=== PATIENT | male | born 1945 | race Caucasian/White ===

== ENCOUNTER → 2018-05-02 15:56 | Outpatient (CLI) | payer OTHER, MEDICARE, SELFPAY ==
--- NOTE | 2018-05-02 16:16 | XR_ITS ---
XR chest 2V HISTORY: ITS.REASON: SHORTNESS OF BREATH ORDERING PHYSICIAN: Santiago Zamudio MD PATIENT AGE: 72 years COMPARISON: 02/06/2013 FINDINGS: Cardiomegaly. Prior median sternotomy and CABG. There are small bilateral pleural effusions. No lobar consolidation or collapse. No CHF. No acute bony anomaly. IMPRESSION: Cardiomegaly with small bilateral pleural effusions.
[2018-05-02 16:29] LABS: Basophils % 0.6 % (0.1-2.0); Eosinophils # 0.2 K/mm3 (0.0-0.4); Eosinophils % 2.3 % (0.1-12.0); Hematocrit 43.2 % (42.0-52.0); Hemoglobin 13.6 g/dL (14.1-18.0); Lymphocytes # 2.3 K/mm3 (0.7-4.5); Lymphocytes % 32.1 % (10-50); Mean Corpuscular HGB Conc 31.5 g/dL (31.8-35.4); Mean Corpuscular Hemoglobin 30.4 pg (27.0-31.2); Mean Corpuscular Volume 96.7 fl (80-94); Mean Platelet Volume 7.9 fl (7.4-10.4); Monocytes # 0.5 K/mm3 (0.1-1.0); Monocytes % 7.3 % (1.7-9.3); Neutrophils # 4.2 K/mm3 (1.8-7.8); Neutrophils % 57.8 % (37.0-80.0); Platelet Count 134 K/mm3 (142-424); Red Blood Count 4.47 M/mm3 (4.60-6.20); Red Cell Distribution Width 14.7 % (11.5-17.5); White Blood Count 7.2 K/mm3 (4.8-10.8)
[2018-05-02 18:01] LABS: Anion Gap 13.5 mEq/L (5-15); Blood Urea Nitrogen 22 mg/dL (7-18); Calcium 8.8 mg/dL (8.5-10.1); Carbon Dioxide 28 mmol/L (21.0-32.0); Chloride 109 mmol/L (98-107); Creatinine,Serum 0.83 mg/dL (0.70-1.30); Estimated Glomerular Filt Rate 91 ml/min (>60); GFR (African American) 110 ML/MIN (>60); Glucose 73 mg/dL (74-106); Potassium 4.5 mmoL/L (3.5-5.1); Sodium 146 mmol/L (136-145)
== END ==
PROVIDERS: Visit Provider Family Medicine
DX: R06.02 Shortness of breath (principal); I25.10 Atherosclerotic heart disease of native coronary artery without angina pectoris
CPT/HCPCS: 36415; 71046; 80048; 83880; 85025

== ENCOUNTER → 2018-05-11 07:46 | Outpatient (CLI) | payer OTHER, MEDICARE, SELFPAY ==
--- NOTE | 2018-05-11 07:59 | CA_ITS ---
PROCEDURE: INDICATIONS FOR THE TEST: Chest pain COPD Heart Murmur Tobacco Smoking Palpitations Fatigue Syncope Edema Hypertension+Diabetes Mellitus Rheumatic Fever SOB+MCKEON Obesity Hyperlipidemia+ Family History HD Additional History CABG X 5, STENTS, CAROTID STENT, H/O CHF PATIENT INFORMATION HEIGHT: 71 WEIGHT:214 GENDER: Male B/P:127/72 2-D/M-MODE INTERPRETATION: 2-D MEASUREMENTS OBSERVED VALUES IN CMS Right Ventricular Dimension (RVDd) 2.3 Interventricular Septum (Thickness)(IVsd) 1.1 Left Ventricular Internal Dimensions(LVIDd) 8.3 Left Ventricular Posterior Wall (Thickness)(LVPWd) 0.6 Aortic Root 3.5 Aortic Cusp Separation 1.4 Left Atrial Dimensions (LAD) 5.7 2D 1. Left atrium is moderately enlarged, left ventricle is moderately dilated, there is mild concentric left ventricular hypertrophy, visually estimated ejection fraction 30%, there is marked hypo to akinesis involving the inferior, basal septum, inferobasal, posterobasal and inferolateral wall. 2. The right atrium and right ventricle are normal size and contractility. 3. The aortic valve is thickened and calcified leaflet continue to display mobility. 4. The mitral and tricuspid valve leaflets are minimally thickened. 5. The pulmonic valve is poorly present. 6. No significant pericardial effusion noted. DOPPLER INTERROGATION: Doppler interrogation of the aortic, mitral and tricuspid valvular presence of moderate aortic, mild mitral and tricuspid regurgitation, tricuspid regurgitation jet velocity is inadequate for calculation of the right ventricular systolic pressure, diastolic parameters are inconclusive. CONCLUSION: 1. Moderately enlarged left atrium, moderately dilated left ventricle, mild concentric left ventricular hypertrophy, visually estimated ejection fraction 30% with multiple segmental wall motion abnormality described above, diastolic parameters are inconclusive. 2. Moderate aortic, mild mitral and tricuspid regurgitation 3. No significant pericardial effusion noted.
== END ==
PROVIDERS: PCP Family Medicine; Visit Provider Family Medicine
DX: R06.02 Shortness of breath (principal); I25.10 Atherosclerotic heart disease of native coronary artery without angina pectoris
CPT/HCPCS: 93306

== ENCOUNTER → 2018-12-08 13:43 | Outpatient (CLI) | payer OTHER, SELFPAY | PROVIDERS: PCP Family Medicine; Visit Provider Family Medicine | DX: R06.00 Dyspnea, unspecified (principal); Z87.891 Personal history of nicotine dependence | CPT/HCPCS: 94060 ==

== ENCOUNTER → 2019-12-20 10:22 | Outpatient (CLI) | payer MEDICARE, SELFPAY ==
--- NOTE | 2019-12-20 10:30 | US_ITS ---
APPROVED REPORT Exam Type: Ankle to Brachial Index Chief Of Anesthesiology: RT Philip(R) Indications Claudication: Bilaterally Rest Pain: Bilaterally History of Smoking CAD Risk Factors CAD Cardiac Disease Diabetes Pressures/Indices Right Indices Left Indices Brachial 160.00 mmHg Brachial 160.00 mmHg Low Thigh 153.00 mmHg 0.96 Low Thigh 150.00 mmHg 0.94 Calf 149.00 mmHg 0.93 Calf 133.00 mmHg 0.83 Ankle(PT) 109.00 mmHg 0.68 Ankle(PT) 175.00 mmHg 1.09 Ankle(DP) 180.00 mmHg 1.13 Ankle(DP) 158.00 mmHg 0.99 Digit 88.00 mmHg 0.55 Digit 108.00 mmHg 0.68 Findings RT SIL=1.1 LT SIL=1.1 RT TBI=0.6 LT TBI=0.7 Diminished pulses RLE Normal waveforms Conclusion Normal appearing resting noninvasive lower extremity arterial study. Electronically signed by : Dhruv Clarke MD 12/20/2019 16:30:12
== END ==
PROVIDERS: PCP Family Medicine; Visit Provider Family Medicine
DX: I70.213 Atherosclerosis of native arteries of extremities with intermittent claudication, bilateral legs (principal)
CPT/HCPCS: 93923

== ENCOUNTER → 2020-03-08 09:34 | Outpatient (CLI) | payer MEDICARE, SELFPAY | PROVIDERS: PCP Family Medicine; Visit Provider Family Medicine | DX: Z20.828 Contact with and (suspected) exposure to other viral communicable diseases (principal); U07.1 COVID-19 | CPT/HCPCS: U0003 ==

== ENCOUNTER → 2020-12-24 13:11 | Outpatient (CLI) | payer MEDICARE, SELFPAY | PROVIDERS: Visit Provider Surgery | DX: Z01.812 Encounter for preprocedural laboratory examination (principal); Z20.822 Contact with and (suspected) exposure to COVID-19; Z12.11 Encounter for screening for malignant neoplasm of colon | CPT/HCPCS: U0003 ==

== ENCOUNTER 2020-12-25 09:04 | Day surgery (SDC) | payer MEDICARE, SELFPAY ==
[2020-12-18 12:08] VITALS: BMI 18.3
[2020-12-25 09:26] VITALS: BP 157/75; PULSE 83; RESP 16; TEMP 36.2; O2SAT 97
[2020-12-25 09:36] LABS: POC Glucose,Bedside 146 (70-110)
[2020-12-25 09:42] VITALS: O2SAT 97
--- NOTE | 2020-12-25 09:45 | HMH.ANESCL ---
[facility] Anesthesia Checklist - Patient Identification Patient Identification: Arm Band - Structural Data Admitted From: Home Planned Operative Procedure/s: colonoscopy Consent for Planned Operative Procedure(s) Verified: Yes Verified Documents: Surgical Consent, History and Physical - NPO Status Verified Time NPO: 00:00 - Additional verifications Anesthesia Reactions: No - Airway Assessment C-Spine Mobility Assessed: Yes (mp2) TMJ Mobility Assessed: Yes Dentition: Edentulous - Neurological Assessment Level of Consciousness: Awake, Alert - Anesthesia Plan Anesthesia Risk discussed: Yes Anesthesia Plan: Verified ASA Class: III Anesthesia Type: MAC [facility] History I have reviewed the patient's past medical history: Yes Medical History: Reports:: Cancer (colon), Carotid Stenosis, Coronary Artery Disease, Diabetes Mellitus Type 2, Hyperlipidemia, Hypertension Denies:: Diabetes Mellitus Type 1, Internal Pacemaker, Lung Disease, MRSA, Seizures *Have you ever received a pneumonia vaccine?: No *Have you received a flu vaccine this season?: No Anesthesia experience/problems:: nac Laterality Cases: Bilateral: Cataract, Tonsillectomy Other Surgeries: Yes: Appendectomy, Cancer Surgery, Cardiac Catheterization, Colonoscopy, Colon Resection, Coronary Stent, Hernia Repair, Open Heart Surgery (CABGx4), Other. No: Pacemaker Amputation: No Fractures: No - *Social History Last grade of school completed: Some college Smoking Status: Former smoker #Yrs smoked (if former smoker): 30 Smoking End Date: 1989 Alcohol Intake: former Substance Use Type: denies use *Occupational Status:: retired Housing: house Household Members: spouse, family *Travel in the last 8 weeks: None Family Hx:: Cancer, Diabetes, Heart Attack, Hyperlipidemia, Hypertension
--- NOTE | 2020-12-25 09:57 | HMH.SCOPE ---
- Procedure: Date: 12/25/20 Patient Date of :: 1945 Procedure Performed:: Colonoscopy Indications:: Patient is a 75-year-old male who is somewhat of a poor historian who presents for follow-up colonoscopy. He has a history of coronary artery disease with previous stenting, carotid stents, diabetes on insulin, on Plavix. He states that he is past due for colonoscopy. He had previously been under the care of Dr. 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 He did have postoperative chemoradiation. Colonoscopy 02/22/2014 and 03/28/[address] Johnston was unremarkable for any recurrence or adenomatous polyps. I had seen the patient in November 2016 and scheduled him for colonoscopy but he never went through with this. He ultimately was scheduled for colonoscopy which was done on 03/29/2018. The patient had failed to stop his Plavix at that time. However, colonoscopy was performed. He was found to have somewhat of an atonic colon and cannulation of the cecum was rather difficult. He had a moderate adenomatous polyp adjacent to the appendiceal orifice which was removed with hot snare and returned as sessile serrated adenoma. He also has some nodular mucosa the rectosigmoid region which returned as melanosis coli. He does have some diarrhea which he feels may be due to the Metformin. Otherwise no symptomatology. Performing Provider:: Jake Herrmann MD Referring Provider:: None Sedation:: MAC sedation Procedure:: Patient was taken to endoscopy procedure room. He was positioned in lateral decubitus position. Adequate intravenous sedation was achieved with anesthesia titration of propofol. Digital examination was performed which was unremarkable. Variable stiffness Olympus colonoscope was inserted via the anus. It was immediately noted to be particulate stool within the rectum. Colonoscope was advanced. In the left colon there was particulate liquid stool. Transverse colon revealed poor preparation as well. Upon reaching the right colon there was solid formed stool throughout the colon. There was also undigested vegetable matter. This could not be irrigated. Visualization was very poor. Colonoscope was withdrawn. Findings:: Very poor visualization Recommendations:: Repeat colonoscopy within several months with aggressive bowel preparation and actual low residue diet Complications:: None immediately apparent Estimated blood obtained (mL): 0
[2020-12-25 09:58] VITALS: BP 127/63; PULSE 68; RESP 16; TEMP 36.6; O2SAT 95
[2020-12-25 10:08] VITALS: BP 156/66; PULSE 82; RESP 16; TEMP 36.6; O2SAT 96
[2020-12-25 10:18] VITALS: BP 136/74; PULSE 58; RESP 16; TEMP 36.6; O2SAT 96
[2020-12-25 10:28] VITALS: BP 144/84; PULSE 65; RESP 18; TEMP 36.6; O2SAT 96
== END 2020-12-25 10:28 | disposition home or self-care (01) ==
PROVIDERS: PCP Family Medicine; Visit Provider Surgery
PROC: 0DJD8ZZ Inspection of Lower Intestinal Tract, Via Natural or Artificial Opening Endoscopic (ICD-10-PCS; principal; 2020-12-25 10:30)
DX: Z12.11 Encounter for screening for malignant neoplasm of colon (principal); Z85.038 Personal history of other malignant neoplasm of large intestine; I25.10 Atherosclerotic heart disease of native coronary artery without angina pectoris; Z95.818 Presence of other cardiac implants and grafts; E11.9 Type 2 diabetes mellitus without complications; Z79.01 Long term (current) use of anticoagulants; Z79.82 Long term (current) use of aspirin; Z79.4 Long term (current) use of insulin; Z79.899 Other long term (current) drug therapy; I50.9 Heart failure, unspecified
CPT/HCPCS: G0105; 82962

== ENCOUNTER → 2021-04-21 11:22 | Outpatient (CLI) | payer MEDICARE, SELFPAY | PROVIDERS: Visit Provider Surgery | DX: Z01.812 Encounter for preprocedural laboratory examination (principal); Z11.52 Encounter for screening for COVID-19; Z12.11 Encounter for screening for malignant neoplasm of colon | CPT/HCPCS: C9803; U0003; U0005 ==

== ENCOUNTER 2021-04-23 06:20 | Day surgery (SDC) | payer MEDICARE, SELFPAY ==
[2021-04-18 10:02] VITALS: BMI 31.0
[2021-04-23] VITALS (7 sets, daily range): BP systolic 110–153; BP diastolic 57–78; PULSE 61–80; RESP 17–18; TEMP 36.1–36.6; O2SAT 93–98
--- NOTE | 2021-04-23 07:02 | HMH.GSHP ---
HPI HPI: Patient presents for follow-up colonoscopy. Patient is a 75-year-old male who is somewhat of a poor historian. He has a history of coronary artery disease with previous stenting, carotid stents, diabetes on insulin, on Plavix. He had previously been under the care of Dr. 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 He did have postoperative chemoradiation. Colonoscopy 02/22/2014 and 03/28/[address] Johnston was unremarkable. I had seen the patient in November 2016 and scheduled him for colonoscopy but he never went through with this. He ultimately did undergo colonoscopy on 03/29/2018. The patient had failed to stop his Plavix at that time. However, colonoscopy was performed. He was found to have somewhat of an atonic colon and cannulation of the cecum was rather difficult. He had a moderate adenomatous polyp adjacent to the appendiceal orifice which was removed with hot snare and returned as sessile serrated adenoma. He also has some nodular mucosa the rectosigmoid region which returned as melanosis coli. Given his history of colon cancer and sessile serrated adenoma he was scheduled for colonoscopy which was performed on 12/25/2020. Colonic preparation was extremely poor and visualization was very poor. Plan was for follow-up colonoscopy in several months with more aggressive bowel preparation and low residue diet. [facility] History I have reviewed the patient's past medical history: Yes Medical History: Reports:: Cancer, Carotid Stenosis, Coronary Artery Disease, Diabetes Mellitus Type 2, Hyperlipidemia, Hypertension Denies:: Diabetes Mellitus Type 1, Internal Pacemaker, Lung Disease, MRSA, Seizures *Have you ever received a pneumonia vaccine?: No *Have you received a flu vaccine this season?: Yes Laterality Cases: Right: Other, Bilateral: Cataract, Tonsillectomy Other Surgeries: Yes: Appendectomy, Cancer Surgery, Cardiac Catheterization, Colonoscopy, Colon Resection, Coronary Stent, Hernia Repair, Open Heart Surgery (CABGx4), Other. No: Pacemaker Amputation: No Fractures: No - *Social History Last grade of school completed: Some college Smoking Status: Former smoker Tobacco Type: cigarettes #Yrs smoked (if former smoker): 30 Alcohol Intake: former Substance Use Type: denies use *Occupational Status:: retired Housing: house Household Members: spouse, family *Travel in the last 8 weeks: None Family Hx:: Cancer, Diabetes, Heart Attack, Hyperlipidemia, Hypertension Review of Systems - Review of Systems Review of systems:: pertinent systems reviewed and negative unless documented below Meds Home Medications Medication Instructions Recorded Confirmed Type aspirin 81 mg tablet,delayed 81 mg PO DAILY 03/07/18 04/23/21 History release clopidogrel 75 mg tablet 75 mg PO DAILY 03/07/18 04/23/21 History insulin glargine 100 unit/mL 20 unit SQ DAILY 03/07/18 04/23/21 History subcutaneous solution krill oil 500 mg capsule 1 tab PO BID cap 03/07/18 04/23/21 History metformin 500 mg tablet 500 mg PO BID 03/07/18 04/23/21 History metoprolol succinate 25 mg 25 mg PO DAILY 03/07/18 04/23/21 History tablet,extended release 24 hr niacin 500 mg capsule,extended 500 mg PO QHS 03/07/18 04/23/21 History release pravastatin 10 mg tablet 10 mg PO DAILY 03/07/18 04/23/21 History apple cider vinegar 600 mg capsule 600 mg PO DAILY 12/06/20 04/23/21 History ascorbic acid (vitamin C) 500 mg 500 mg PO DAILY 12/06/20 04/23/21 History capsule cholecalciferol (vitamin D3) 10 10 mcg PO DAILY 12/06/20 04/23/21 History mcg (400 unit) capsule cinnamon bark 500 mg capsule 500 mg PO DAILY 12/06/20 04/23/21 History enalapril maleate 5 mg tablet 5 mg PO DAILY tab 12/06/20 04/23/21 History furosemide 40 mg tablet 40 mg PO BID tab 12/06/20 04/23/21 History gabapentin 600 mg tablet 800 mg PO TID tab 12/06/20 04/23/21 History multivit with min-folic 1 tab
--- NOTE | 2021-04-23 08:06 | P.PCN_ITS ---
- Procedure: Date: 04/23/21 Patient Date of :: 1945 Procedure Performed:: Colonoscopy with biopsies Indications:: Patient presents for follow-up colonoscopy. Patient is a 75-year-old male who is somewhat of a poor historian. He has a history of coronary artery disease with previous stenting, carotid stents, diabetes on insulin, on Plavix. He had previously been under the care of Dr. 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 He did have postoperative chemoradiation. Colonoscopy 02/22/2014 and 03/28/[address] Johnston was unremarkable. I had seen the patient in November 2016 and scheduled him for colonoscopy but he never went through with this. He ultimately did undergo colonoscopy on 03/29/2018. The patient had failed to stop his Plavix at that time. However, colonoscopy was performed. He was found to have somewhat of an atonic colon and cannulation of the cecum was rather difficult. He had a moderate adenomatous polyp adjacent to the appendic eal orifice which was removed with hot snare and returned as sessile serrated adenoma. He also has some nodular mucosa the rectosigmoid region which returned as melanosis coli. Given his history of colon cancer and sessile serrated adenoma he was scheduled for colonoscopy which was performed on 12/25/2020. Colonic preparation was extremely poor and visualization was very poor. Plan was for follow-up colonoscopy in several months with more aggressive bowel preparation and low residue diet. Performing Provider:: Jake Herrmann MD Referring Provider:: Santiago Zamudio MD Sedation:: MAC sedation Procedure:: Patient was taken to endoscopy procedure room. He was positioned in lateral de cubitus position. Adequate intravenous sedation was achieved with anesthesia titration of propofol. Variable stiffness Olympus colonoscope was inserted via the anus. It was advanced to the cecum. He did have some floppiness of the sigmoid colon. Ileocecal valve and appendiceal orifice were identified. Colonic preparation was fair but adequate visualization was achieved with thorough irrigation and suctioning. There was a focal area of reddish mucosa in the cecum which was biopsied. Colonoscope was slowly withdrawn through the colon with careful surveillance thorough irrigation and suctioning. There were some sigmoid diverticuli. What appeared to be likely end-to-end anastomosis was encountered at approximately 20 cm from the anal verge. In the rectosigmoid region there is some minor nodular appearing mucosa which was biopsied. Retroflexion within the rectum revealed no evidence of any pathologic internal hemorrhoids. Colonoscope was withdrawn. Findings:: Fair colonic preparation Focal spot of likely colitis in the cecum, biopsied Sigmoid diverticuli Anastomosis approximately 20 cm from the anal verge Minor nodular appearing mucosa of the rectosigmoid, likely inconsequential, biopsied Recommendations:: Likely repeat colonoscopy in 2 years given prior history and fair colonic preparation Complications:: None immediately apparent Estimated blood obtained (mL): 2
--- NOTE | 2021-04-23 12:16 | HMH.ANESCL ---
[facility] Anesthesia Checklist - Patient Identification Patient Identification: Arm Band, Verbal (Name & ) - Structural Data Admitted From: Home Planned Operative Procedure/s: Colonoscopy Consent for Planned Operative Procedure(s) Verified: Yes Verified Documents: Surgical Consent - NPO Status Verified Time NPO: 00:00 - Additional verifications Anesthesia Reactions: No - Cardiovascular Assessment Heart Sounds: S1 & S2 - Airway Assessment C-Spine Mobility Assessed: Yes TMJ Mobility Assessed: Yes Dentition: Edentulous - Neurological Assessment Level of Consciousness: Awake, Alert, Appropriate - Anesthesia Plan Anesthesia Risk discussed: Yes ASA Class: II Anesthesia Type: General [facility] History I have reviewed the patient's past medical history: Yes Medical History: Reports:: Cancer, Carotid Stenosis, Coronary Artery Disease, Diabetes Mellitus Type 2, Hyperlipidemia, Hypertension Denies:: Diabetes Mellitus Type 1, Internal Pacemaker, Lung Disease, MRSA, Seizures *Have you ever received a pneumonia vaccine?: No *Have you received a flu vaccine this season?: Yes Anesthesia experience/problems:: none Laterality Cases: Right: Other, Bilateral: Cataract, Tonsillectomy Other Surgeries: Yes: Appendectomy, Cancer Surgery, Cardiac Catheterization, Colonoscopy, Colon Resection, Coronary Stent, Hernia Repair, Open Heart Surgery (CABGx4), Other. No: Pacemaker Amputation: No Fractures: No - *Social History Last grade of school completed: Some college Smoking Status: Former smoker Tobacco Type: cigarettes #Yrs smoked (if former smoker): 30 Alcohol Intake: former Substance Use Type: denies use *Occupational Status:: retired Housing: house Household Members: spouse, family *Travel in the last 8 weeks: None Family Hx:: Cancer, Diabetes, Heart Attack, Hyperlipidemia, Hypertension
--- NOTE | 2021-04-23 12:50 | HMH.ANESI ---
[facility] Anesthesia Record Part I Intake, IV Amount: 600 Estimated blood loss (mL): 1 Urine output (mL): 0 Blood Pressure: 110/57 SaO2: 93 Pulse Rate: 71 Respiratory Rate: 17 Temperature: 97.0 F Patient is:: Drowsy Stable to PACU at:: 12:47
[2022-02-26 10:54] LABS: POC Glucose,Bedside 110 (70-110)
== END 2021-04-23 08:38 | disposition home or self-care (01) ==
LOC: OUTP 06:21
PROVIDERS: PCP Family Medicine; Visit Provider Surgery
PROC: 0DJD8ZZ Inspection of Lower Intestinal Tract, Via Natural or Artificial Opening Endoscopic (ICD-10-PCS; principal; 2021-04-23 07:30)
DX: Z12.11 Encounter for screening for malignant neoplasm of colon (principal); K63.89 Other specified diseases of intestine; Z90.49 Acquired absence of other specified parts of digestive tract; Z85.030 Personal history of malignant carcinoid tumor of large intestine; I65.29 Occlusion and stenosis of unspecified carotid artery; E11.9 Type 2 diabetes mellitus without complications; E78.5 Hyperlipidemia, unspecified; I10 Essential (primary) hypertension; Z87.891 Personal history of nicotine dependence; Z80.9 Family history of malignant neoplasm, unspecified; Z83.3 Family history of diabetes mellitus; Z82.3 Family history of stroke; Z83.438 Family history of other disorder of lipoprotein metabolism and other lipidemia; Z82.49 Family history of ischemic heart disease and other diseases of the circulatory system
CPT/HCPCS: 45380; 82962; 88305

== ENCOUNTER → 2022-04-14 09:35 | Outpatient (CLI) | payer MEDICARE, SELFPAY ==
--- NOTE | 2022-04-14 09:41 | CT_ITS ---
FINAL REPORT TECHNIQUE: Pre and postcontrast images of the abdomen and pelvis was obtained by computed tomography. This study was performed with techniques to keep radiation doses as low as reasonably achievable (ALARA). Individualized dose reduction techniques using automated exposure control or adjustment of mA and/or kV according to the patient's size were employed. CLINICAL HISTORY: left side pain FINDINGS: The lung bases are clear. The liver parenchyma is homogeneous. There are small stones or sludge in the dependent portion of the gallbladder. The spleen is unremarkable. The adrenals are normal. The pancreas is unremarkable. There is extensive vascular calcification of the abdominal aorta, iliac vessels, and mesenteric vessels. There are benign-appearing cysts in both kidneys measuring up to 7.6 x 6.9 cm on the right and 8.7 x 7.5 cm on the left. There is a partially calcified rim to the cyst in the lower pole of the left kidney, may represent decompressed remanent of a partially calcified cyst. Precontrast images demonstrate no nephrolithiasis. The appendix is not identified. There are postoperative changes in the rectosigmoid junction. The urinary bladder is unremarkable. There is no free fluid or adenopathy. There are healed fracture deformities at the symphysis pubis bilaterally. There is also a healed fracture of the left sacral ala. IMPRESSION: Stones or sludge in the gallbladder. Bilateral renal cysts as detailed above. No acute inflammatory process. Reviewed, Interpreted and Dictated by Dimas Riggs MD Transcribed by Irene Marx Authenticated and [facility]
== END ==
PROVIDERS: PCP Family Medicine; Visit Provider Surgery
DX: R10.9 Unspecified abdominal pain (principal)
CPT/HCPCS: 74178; Q9967

== ENCOUNTER 2022-06-12 10:30 | Day surgery (SDC) | payer MEDICARE, SELFPAY ==
[2022-06-12] VITALS (8 sets, daily range): BP systolic 110–145; BP diastolic 67–83; PULSE 66–76; RESP 18; TEMP 36.4–36.6; O2SAT 95–99; BMI 28.5
--- NOTE | 2022-06-12 10:43 | P.PN_ITS ---
[facility] Disclaimer: The information contained in this section may have been updated after the patient was seen, as this information can be updated by other users. Medical History (Updated 06/12/22 @ 10:55 by Yun Garcia RN) Colon cancer Diabetes mellitus, type 2 Hyperlipidemia Hypertension Internal carotid artery stent present Seizure disorder Surgical History (Updated 06/12/22 @ 10:52 by Yun Garcia RN) H/O heart artery stent History of appendectomy History of colon resection History of colonoscopy Family History Other Family history of arthritis Family history of myocardial infarction Social History (Updated 06/12/22 @ 10:55 by Yun Garcia RN) Smoking Status: Former smoker pack-years: 30 second hand exposure: No alcohol intake: former substance use type: denies use current occupational status: retired Travel in the last 8 weeks: None household members: spouse and family housing: house caffeine: No [facility] Anesthesia Checklist Patient Identification Patient Identification: Arm Band and Verbal (Name & ) Structural Data Admitted From: Home Planned Operative Procedure/s: E/C Consent for Planned Operative Procedure(s) Verified: Yes NPO Status Verified Time NPO: 00:00 Additional verifications Anesthesia Reactions: No Airway Assessment C-Spine Mobility Assessed: Yes TMJ Mobility Assessed: Yes Dentition: Edentulous Neurological Assessment Level of Consciousness: Awake Hx Seizures: No Numbness or tingling in extremities: No Anesthesia Plan Anesthesia Risk discussed: Yes Anesthesia Plan: Verified ASA Class: III Anesthesia Type: MAC
[2022-06-12 11:05] LABS: POC Glucose,Bedside 138 (70-110)
--- NOTE | 2022-06-12 12:10 | EXP.GEN.HP ---
HPI HPI HPI: Patient presents for EGD and colonoscopy.? He is somewhat of a poor historian.? He is a 76-year-old male who is an established patient of mine.? He has a history of coronary disease with previous coronary stenting, history of carotid stents, diabetes on insulin, on Plavix.? He underwent low anterior resection by Dr. 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 Dr. Johnston had performed colonoscopy on 02/22/2014 and on 03/28/2015 which were reportedly unremarkable.? I did colonoscopy on 03/29/2018 and patient had moderate sized adenomatous polyp adjacent to the appendiceal orifice which returned as sessile serrated adenoma and had some rectosigmoid melanosis coli.? I had performed colonoscopy on 12/25/2020 and colonic preparation was extremely poor with very poor visualization.? Follow-up colonoscopy was performed on 04/19/2001 at which time he had poor to fair colonic preparation with sigmoid diverticuli.? Apparently recently the patient has had some melena characterized as jet black stool.? Patient also had been complaining of right posterior flank pain and back pain for couple days.? I had him undergo CT scan which reveals stones or sludge in the gallbladder.? Bilateral renal cysts as detailed above.? No acute inflammatory process. [facility] Disclaimer: The information contained in this section may have been updated after the patient was seen, as this information can be updated by other users. Medical History (Updated 06/12/22 @ 10:55 by Yun Garcia RN) Colon cancer Diabetes mellitus, type 2 Hyperlipidemia Hypertension Internal carotid artery stent present Seizure disorder Surgical History (Updated 06/12/22 @ 10:52 by Yun Garcia RN) H/O heart artery stent History of appendectomy History of colon resection History of colonoscopy Family History Family history of arthritis Family history of myocardial infarction Social History (Updated 06/12/22 @ 10:55 by Yun Garcia RN) Smoking Status: Former smoker pack-years: 30 second hand exposure: No alcohol intake: former substance use type: denies use current occupational status: retired Travel in the last 8 weeks: None household members: spouse and family housing: house caffeine: No Meds Home Medications and Allergies Home Medications Medication Instructions Recorded Confirmed Type aspirin 81 mg tablet,delayed 81 mg PO DAILY Heart disease 03/07/18 06/12/22 History release (Adult Low Dose Aspirin) clopidogrel 75 mg tablet 75 mg PO DAILY bypass 03/07/18 06/12/22 History insulin glargine 100 unit/mL 20 unit SQ DAILY Diabetes 03/07/18 06/12/22 History subcutaneous solution (Lantus U-100 Insulin) krill oil 500 mg capsule 1 tab PO BID Supplement 03/07/18 06/12/22 History metformin 500 mg tablet 500 mg PO BID Diabetes 03/07/18 06/12/22 History metoprolol succinate 25 mg 25 mg PO DAILY blood pressure 03/07/18 06/12/22 History tablet,extended release 24 hr niacin 500 mg capsule,extended 500 mg PO QHS Supplement 03/07/18 06/12/22 History release pravastatin 10 mg tablet 10 mg PO DAILY Cholesterol 03/07/18 06/12/22 History apple cider vinegar 600 mg capsule 600 mg PO DAILY Supplement 12/06/20 06/12/22 History ascorbic acid (vitamin C) 500 mg 500 mg PO DAILY Supplement 12/06/20 06/12/22 History capsule cholecalciferol (vitamin D3) 10 10 mcg PO DAILY Supplement 12/06/20 06/12/22 History mcg (400 unit) capsule cinnamon bark 500 mg capsule 500 mg PO DAILY Supplement 12/06/20 06/12/22 History (Cinnamon) enalapril maleate 5 mg tablet 5 mg PO DAILY bp 12/06/20 06/12/22 History furosemide 40 mg tablet 40 mg PO BID Fluid 12/06/20 06/12/22 History gabapentin 600 mg tablet 800 mg PO TID nerve pain 12/06/20 06/12/22 History multivit with min-folic 1 tab PO DAILY Supplement 12/06/20 06/12/22 Hist
--- NOTE | 2022-06-12 12:44 | HMH.SCOPE ---
Procedure: Date: 06/12/22 Patient Date of :: 1945 Procedure Performed:: Esophagogastroduodenoscopy Colonoscopy Indications:: Patient presents for EGD and colonoscopy.? He is somewhat of a poor historian.? He is a 76-year-old male who is an established patient of mine.? He has a history of coronary disease with previous coronary stenting, history of carotid stents, diabetes on insulin, on Plavix.? He underwent low anterior resection by Dr. 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 Dr. Johnston had performed colonoscopy on 02/22/2014 and on 03/28/2015 which were reportedly unremarkable.? I did colonoscopy on 03/29/2018 and patient had moderate sized adenomatous polyp adjacent to the appendiceal orifice which returned as sessile serrated adenoma and had some rectosigmoid melanosis coli.? At that time the patient had failed to stop his Plavix prior to the procedure. I had performed colonoscopy on 12/25/2020 and colonic preparation was extremely poor with very poor visualization.? Follow-up colonoscopy was performed on 04/19/2001 at which time he had poor to fair colonic preparation with sigmoid diverticuli.? Plan was made for follow-up colonoscopy in 2 years. Apparently recently the patient has had some melena characterized as jet black stool.? Patient also had been complaining of right posterior flank pain and back pain for couple days.? I had him undergo CT scan which reveals stones or sludge in the gallbladder.? Bilateral renal cysts as detailed above.? No acute inflammatory process. Plan was made to proceed with EGD and colonoscopy. Patient states that his colonic preparation went well and he was passing essentially water. He had not discontinued his aspirin and only held his Plavix for 1 day. Performing Provider:: Jake Herrmann MD Referring Provider:: Santiago Boss MD Sedation:: MAC sedation Procedure:: Patient was taken to endoscopy procedure room. He was positioned in lateral decubitus position. Adequate intravenous sedation was achieved with anesthesia titration of propofol. Olympus endoscope was inserted via the oropharynx. Esophagus was cannulated. There was some findings likely consistent with esophageal dysmotility. Stomach was cannulated and insufflated. Most notable was findings of punctate ulcer/erosion, several, at the pylorus. These were not biopsied as he has been on antiplatelet therapy. Pylorus was traversed. Duodenum revealed some duodenitis within the bulb. Endoscope was withdrawn. Attention was then turned to colonoscopy. Digital examination was performed. There was some liquid stool which exuded from the anus. Variable stiffness Olympus colonoscope was inserted via the anus. There is liquid stool noted. Colonoscope was advanced to the cecum. Colonic preparation was extremely poor and despite irrigation and suctioning the colon could not be cleared. The ileocecal valve and appendiceal orifice were identified. Colonoscope was withdrawn. Findings:: Findings of esophageal dysmotility Punctate ulcers/erosions at pylorus Nonerosive duodenitis within the bulb Very poor colonic preparation Recommendations:: I will go ahead and initiate proton pump inhibitors. Repeat colonoscopy and upper endoscopy likely in about 4 months with multi day prep and holding Plavix for approximately 5 days Complications:: None immediately apparent Estimated blood obtained (mL): 0
== END 2022-06-12 13:55 | disposition home or self-care (01) ==
PROVIDERS: PCP Family Medicine; Visit Provider Surgery
PROC: 0DJ08ZZ Inspection of Upper Intestinal Tract, Via Natural or Artificial Opening Endoscopic (ICD-10-PCS; CPT 43235; principal; 2022-06-12 11:30)
DX: K92.1 Melena (principal); Z79.899 Other long term (current) drug therapy; Z86.010 Personal history of colon polyps; M54.9 Dorsalgia, unspecified; R10.9 Unspecified abdominal pain; E11.9 Type 2 diabetes mellitus without complications
CPT/HCPCS: 43235; 45378; 82962; J2704

== ENCOUNTER 2022-12-13 14:21 | Emergency (ER) | payer MEDICARE, SELFPAY ==
[2022-12-13 14:34] VITALS: BP 136/69; PULSE 71; RESP 18; TEMP 36.8; O2SAT 96; BMI 31.8
--- NOTE | 2022-12-13 14:38 | XR_ITS ---
PROCEDURE INFORMATION: Exam: XR Left Ribs with PA Chest Exam date and time: 12/13/2022 2:39 PM Age: 77 years old Clinical indication: Injury or trauma; Rib area, left side; Blunt trauma; Patient HX: Patient states chair he was sitting on collapsed causing him to fall. TECHNIQUE: Imaging protocol: Radiologic exam of the left ribs with PA chest. Views: 3 views COMPARISON: CR (CHEST, CXR AP LANDSCAPE) 11/17/2018 2:32 PM FINDINGS: Lungs: Unremarkable. No consolidation. Pleural spaces: Unremarkable. No pleural effusion. No pneumothorax. Heart/Mediastinum: Heart is least mildly enlarged, unchanged. Evidence of prior CABG. Bones/joints: Evidence of prior median sternotomy. Mild-moderate degenerative changes right shoulder joint. No displaced rib fractures detected. IMPRESSION: Negative for displaced left rib fractures.
--- NOTE | 2022-12-13 14:55 | EXP.UTC ---
Discharge Plan Disposition Patient Disposition: Home, Self-Care Condition: Good Prescriptions Prescriptions: No Action pantoprazole [Protonix] 40 mg tablet,delayed release (DR/EC) 40 mg PO DAILY Qty: 30 2RF Probiotic 15 billion cell capsule, sprinkle 1 cap PO DAILY Qty: 30 0RF Rx Instructions: do not crush/chew/cut; swallow whole OR may open and sprinkle in cold drink/food aspirin [Adult Low Dose Aspirin] 81 mg tablet,delayed release (DR/EC) 81 mg PO DAILY pravastatin 10 mg tablet 10 mg PO DAILY metoprolol succinate 25 mg tablet extended release 24 hr 25 mg PO DAILY metformin 500 mg tablet 500 mg PO BID Lantus U-100 Insulin 100 unit/mL solution 20 unit SQ DAILY clopidogrel 75 mg tablet 75 mg PO DAILY niacin 500 mg capsule, extended release 500 mg PO QHS krill oil 500 mg capsule 1 tab PO BID gabapentin 600 mg tablet 800 mg PO TID potassium chloride 20 mEq tablet,ER particles/crystals 20 meq PO DAILY furosemide 40 mg tablet 40 mg PO BID enalapril maleate 5 mg tablet 5 mg PO DAILY apple cider vinegar 600 mg capsule 600 mg PO DAILY cinnamon bark [Cinnamon] 500 mg capsule 500 mg PO DAILY ascorbic acid (vitamin C) 500 mg capsule 500 mg PO DAILY cholecalciferol (vitamin D3) 10 mcg (400 unit) capsule 10 mcg PO DAILY Centrum Silver 400-250 mcg tablet,chewable 1 tab PO DAILY Referrals Follow up/Referrals: Santiago Boss MD [Primary Care Provider] - See instructions Activity Restrictions/Add. Instructions Additional Instructions/Restrictions: Go home and rest. It would be best if you rested tomorrow too. No heavy lifting. No twisting. Follow up with your regular doctor. GO TO THE ER FOR ANY WORSENING SYMPTOMS OR CONCERN, ESPECIALLY BOWEL OR BLADDER ISSUES, SADDLE AREA NUMBNESS, FEVER, ETC Clinical Impressions Clinical Impression: Contusion of rib on left side, Rib pain on left side Instructions Patient Instructions: DI for Rib Contusion Discharge ED Provider: Valentín Dillon [facility] General Stated complaint: AO 12/11 fall, muscle pain Mode of Arrival: Ambulatory Source of Information: Patient Limitations: No Limitations Time Seen by Provider: 12/13/22 14:55 HEENT Symptoms (Recalled from RN notes): No Resp Symptoms (Recalled from RN notes): No Skin Symptoms (Recalled from RN notes): No MS Symptoms (Recalled from RN notes): Yes Functional Status (Recalled from RN notes): wnl History of Present Illness Provider Complaint: States he fell the other day out of a chair and thinks he bruised the left side of his chest that he landed on. Related Data Home Medications Medication Instructions Recorded Confirmed aspirin 81 mg tablet,delayed 81 mg PO DAILY Heart disease 03/07/18 06/23/22 release (Adult Low Dose Aspirin) clopidogrel 75 mg tablet 75 mg PO DAILY bypass 03/07/18 06/23/22 insulin glargine 100 unit/mL 20 unit SQ DAILY Diabetes 03/07/18 06/23/22 subcutaneous solution (Lantus U-100 Insulin) krill oil 500 mg capsule 1 tab PO BID Supplement 03/07/18 06/23/22 metformin 500 mg tablet 500 mg PO BID Diabetes 03/07/18 06/23/22 metoprolol succinate 25 mg 25 mg PO DAILY blood pressure 03/07/18 06/23/22 tablet,extended release 24 hr niacin 500 mg capsule,extended 500 mg PO QHS Supplement 03/07/18 06/23/22 release pravastatin 10 mg tablet 10 mg PO DAILY Cholesterol 03/07/18 06/23/22 apple cider vinegar 600 mg capsule 600 mg PO DAILY Supplement 12/06/20 06/23/22 ascorbic acid (vitamin C) 500 mg 500 mg PO DAILY Supplement 12/06/20 06/23/22 capsule cholecalciferol (vitamin D3) 10 10 mcg PO DAILY Supplement 12/06/20 06/23/22 mcg (400 unit) capsule cinnamon bark 500 mg capsule 500 mg PO DAILY Supplement 12/06/20 06/23/22 (Cinnamon) enalapril maleate 5 mg tablet 5 mg PO DAILY bp 12/06/20 06/23/22 furosemide 40 mg tablet 40 mg PO BID Fluid 12/06/20 06/23/22
[2022-12-13 15:45] VITALS: BP 136/69; PULSE 71; RESP 18; TEMP 36.8; O2SAT 96
== END 2022-12-13 15:46 | disposition home or self-care (01) ==
PROVIDERS: Emergency Provider Nurse Practitioner Family; PCP Internal Medicine Adolescent Medicine
DX: S20.212A Contusion of left front wall of thorax, initial encounter (principal); R07.81 Pleurodynia; E11.9 Type 2 diabetes mellitus without complications; I10 Essential (primary) hypertension; E78.5 Hyperlipidemia, unspecified; G40.909 Epilepsy, unspecified, not intractable, without status epilepticus; Z95.5 Presence of coronary angioplasty implant and graft; Z79.4 Long term (current) use of insulin; W07.XXXA Fall from chair, initial encounter
CPT/HCPCS: 71101; 99204; 99212; G0463

== ENCOUNTER 2022-12-31 10:03 | Emergency (ER) | payer MEDICARE, SELFPAY ==
[2022-12-31 10:04] VITALS: BP 117/81; PULSE 80; RESP 18; TEMP 37; O2SAT 98; BMI 33.7
--- NOTE | 2022-12-31 10:23 | EXP.UTC ---
Discharge Plan Disposition Patient Disposition: Home, Self-Care Condition: Good Prescriptions Prescriptions: New benzonatate [benzonatate] 100 mg capsule 100 mg PO TIDP PRN (Reason: Cough) Qty: 30 0RF azithromycin [Zithromax] 250 mg tablet 250 mg PO UD DOSE PK Qty: 6 0RF Rx Instructions: Take two (2) tablets today, then one (1) tablet days #2 thru #5 No Action pantoprazole [Protonix] 40 mg tablet,delayed release (DR/EC) 40 mg PO DAILY Qty: 30 2RF Probiotic 15 billion cell capsule, sprinkle 1 cap PO DAILY Qty: 30 0RF Rx Instructions: do not crush/chew/cut; swallow whole OR may open and sprinkle in cold drink/food aspirin [Adult Low Dose Aspirin] 81 mg tablet,delayed release (DR/EC) 81 mg PO DAILY pravastatin 10 mg tablet 10 mg PO DAILY metoprolol succinate 25 mg tablet extended release 24 hr 25 mg PO DAILY metformin 500 mg tablet 500 mg PO BID Lantus U-100 Insulin 100 unit/mL solution 20 unit SQ DAILY clopidogrel 75 mg tablet 75 mg PO DAILY niacin 500 mg capsule, extended release 500 mg PO QHS krill oil 500 mg capsule 1 tab PO BID gabapentin 600 mg tablet 800 mg PO TID potassium chloride 20 mEq tablet,ER particles/crystals 20 meq PO DAILY furosemide 40 mg tablet 40 mg PO BID enalapril maleate 5 mg tablet 5 mg PO DAILY apple cider vinegar 600 mg capsule 600 mg PO DAILY cinnamon bark [Cinnamon] 500 mg capsule 500 mg PO DAILY ascorbic acid (vitamin C) 500 mg capsule 500 mg PO DAILY cholecalciferol (vitamin D3) 10 mcg (400 unit) capsule 10 mcg PO DAILY Centrum Silver 400-250 mcg tablet,chewable 1 tab PO DAILY Referrals Follow up/Referrals: Santiago Boss MD [Primary Care Provider] - See instructions Activity Restrictions/Add. Instructions Additional Instructions/Restrictions: Drink plenty of fluids. Take tylenol or ibuprofen for pain or fever. Take the medications as directed. Follow up with your regular doctor. GO TO THE ER FOR ANY WORSENING SYMPTOMS Clinical Impressions Clinical Impression: Bronchitis, Exposure to 2019 novel coronavirus Instructions Patient Instructions: DI for Acute Bronchitis Discharge ED Provider: Valentín Dillon [facility] General Stated complaint: cough, congestion, covid test Time Seen by Provider: 12/31/22 10:22 History of Present Illness Provider Complaint: He states that for the past 3 days he has had a productive cough, and a scratchy sore throat. He was exposed to covid-19 about 5 days ago. Related Data Home Medications Medication Instructions Recorded Confirmed aspirin 81 mg tablet,delayed 81 mg PO DAILY Heart disease 03/07/18 06/23/22 release (Adult Low Dose Aspirin) clopidogrel 75 mg tablet 75 mg PO DAILY bypass 03/07/18 06/23/22 insulin glargine 100 unit/mL 20 unit SQ DAILY Diabetes 03/07/18 06/23/22 subcutaneous solution (Lantus U-100 Insulin) krill oil 500 mg capsule 1 tab PO BID Supplement 03/07/18 06/23/22 metformin 500 mg tablet 500 mg PO BID Diabetes 03/07/18 06/23/22 metoprolol succinate 25 mg 25 mg PO DAILY blood pressure 03/07/18 06/23/22 tablet,extended release 24 hr niacin 500 mg capsule,extended 500 mg PO QHS Supplement 03/07/18 06/23/22 release pravastatin 10 mg tablet 10 mg PO DAILY Cholesterol 03/07/18 06/23/22 apple cider vinegar 600 mg capsule 600 mg PO DAILY Supplement 12/06/20 06/23/22 ascorbic acid (vitamin C) 500 mg 500 mg PO DAILY Supplement 12/06/20 06/23/22 capsule cholecalciferol (vitamin D3) 10 10 mcg PO DAILY Supplement 12/06/20 06/23/22 mcg (400 unit) capsule cinnamon bark 500 mg capsule 500 mg PO DAILY Supplement 12/06/20 06/23/22 (Cinnamon) enalapril maleate 5 mg tablet 5 mg PO DAILY bp 12/06/20 06/23/22 furosemide 40 mg tablet 40 mg PO BID Fluid 12/06/20 06/23/22 gabapentin 600 mg tablet 800 mg PO TID nerve pain 12/06/20 06/23/22 multivit with min-fo
[2022-12-31 11:02] VITALS: BP 117/81; PULSE 80; RESP 18; TEMP 37; O2SAT 98
== END 2022-12-31 11:03 | disposition home or self-care (01) ==
PROVIDERS: Emergency Provider Nurse Practitioner Family; PCP Internal Medicine Adolescent Medicine
DX: U07.1 COVID-19 (principal); J20.9 Acute bronchitis, unspecified; E11.9 Type 2 diabetes mellitus without complications; E78.5 Hyperlipidemia, unspecified; I10 Essential (primary) hypertension; G40.909 Epilepsy, unspecified, not intractable, without status epilepticus; Z95.5 Presence of coronary angioplasty implant and graft; Z87.891 Personal history of nicotine dependence; Z79.4 Long term (current) use of insulin
CPT/HCPCS: 99212; 99214; G0463

== ENCOUNTER 2023-07-09 17:08 | Observation (INO) | payer MEDICARE, SELFPAY ==
[2023-07-09] VITALS (12 sets, daily range): BP systolic 132–168; BP diastolic 78–92; PULSE 43–80; RESP 14–19; TEMP 36.6; O2SAT 92–98; BMI 29.7
--- NOTE | 2023-07-09 17:57 | ECG_ITS ---
APPROVED REPORT Exam: Resting ECG HR:70 bpm ECG Measurements Heart Rate 70 AXES MA 153 P 33 QRSd 158 QRS -61 QT 460 T 110 QTc 480 Conclusion SINUS RHYTHM WITH SINUS ARRHYTHMIA LEFT AXIS DEVIATION [QRS AXIS < -30] POSSIBLE RIGHT VENTRICULAR CONDUCTION DELAY [RSR (QR) IN V1/V2] LEFT BUNDLE BRANCH BLOCK [120+ ms QRS DURATION, 80+ ms Q/S IN V1/V2, 85+ ms R IN I/aVL/V5/V6] ABNORMAL ECG UNCONFIRMED REPORT Electronically signed by : Santiago Boss MD 07/10/2023 06:28:24
--- NOTE | 2023-07-09 18:07 | HMH.EDGENADL ---
Discharge Plan Disposition Patient Disposition: Admitted Clinical Impressions Clinical Impression: Persistent postural-perceptual dizziness Discharge ED Provider: Nain Kuo General Adult HPI General Chief complaint: Nausea/Vomiting/Diarrhea Stated complaint: vomiting, very dizzy Time Seen by Provider: 07/09/23 17:11 Mode of Arrival: Ambulatory Limitations: No Limitations Description of Symptoms (Recalled from ER Triage Doc. by RN): Pt. c/o N/V/D for 2 days. Denies fever. History of Present Illness HPI narrative: 77 male with history of hypertension, hyperlipidemia, CAD status post four-vessel CABG, colon cancer status post resection and in remission presenting with dizziness. Patient states that he was diagnosed with flu just a couple days ago. Has been vomiting and having diarrhea since that time. Nonbloody, nonbilious vomiting, nonbloody diarrhea. Normal tenderness, chest pain, shortness of breath, but feeling dizzy with changes in position. Related Data Home Medications Medication Instructions Recorded Confirmed aspirin 81 mg tablet,delayed 81 mg PO DAILY Heart disease 03/07/18 06/23/22 release (Adult Low Dose Aspirin) clopidogrel 75 mg tablet 75 mg PO DAILY bypass 03/07/18 06/23/22 insulin glargine 100 unit/mL 20 unit SQ DAILY Diabetes 03/07/18 06/23/22 subcutaneous solution (Lantus U-100 Insulin) krill oil 500 mg capsule 1 tab PO BID Supplement 03/07/18 06/23/22 metformin 500 mg tablet 500 mg PO BID Diabetes 03/07/18 06/23/22 metoprolol succinate 25 mg 25 mg PO DAILY blood pressure 03/07/18 06/23/22 tablet,extended release 24 hr niacin 500 mg capsule,extended 500 mg PO QHS Supplement 03/07/18 06/23/22 release pravastatin 10 mg tablet 10 mg PO DAILY Cholesterol 03/07/18 06/23/22 apple cider vinegar 600 mg capsule 600 mg PO DAILY Supplement 12/06/20 06/23/22 ascorbic acid (vitamin C) 500 mg 500 mg PO DAILY Supplement 12/06/20 06/23/22 capsule cholecalciferol (vitamin D3) 10 10 mcg PO DAILY Supplement 12/06/20 06/23/22 mcg (400 unit) capsule cinnamon bark 500 mg capsule 500 mg PO DAILY Supplement 12/06/20 06/23/22 (Cinnamon) enalapril maleate 5 mg tablet 5 mg PO DAILY bp 12/06/20 06/23/22 furosemide 40 mg tablet 40 mg PO BID Fluid 12/06/20 06/23/22 gabapentin 600 mg tablet 800 mg PO TID nerve pain 12/06/20 06/23/22 multivit with min-folic 1 tab PO DAILY Supplement 12/06/20 06/23/22 acid-lutein 400 mcg-250 mcg chewable tablet (Centrum Silver) potassium chloride 20 mEq 20 meq PO DAILY Supplement 12/06/20 06/23/22 tablet,extended release(part/cryst) Previous Rx's Medication Instructions Recorded lactobacillus combo no.11 15 1 cap PO DAILY #30 caps 06/23/22 billion cell sprinkle capsule (Probiotic) azithromycin 250 mg tablet 250 mg PO UD DOSE PK #6 tabs 12/31/22 (Zithromax) benzonatate 100 mg capsule 100 mg PO TIDP PRN Cough #30 caps 12/31/22 pantoprazole 40 mg tablet,delayed 40 mg PO DAILY #30 tabs 02/08/23 release (Protonix) Allergies Allergy/AdvReac Type Severity Reaction Status Date / Time No Known Allergies Allergy Verified 06/23/22 10:42 [facility] Disclaimer: The information contained in this section may have been updated after the patient was seen, as this information can be updated by other users. Medical History Colon cancer Diabetes mellitus, type 2 Hyperlipidemia Hypertension Internal carotid artery stent present Seizure disorder Surgical History H/O heart artery stent History of appendectomy History of colon resection History of colonoscopy History of esophagogastroduodenoscopy (EGD) Family History Other Family history of arthritis Family history of myocardial infarction Social History Smoking Status: Current every day smoker tobacco type: cigarettes second hand exposure: No alcohol intake: former substance use type: denies use current occupational status: retired Travel in the last 8 weeks: None household members: spouse and family housing: house caffeine: No ROS Obtained: Yes All systems reviewed & no additional complaints except as documented Physical Exam General General appearance: alert and in no apparent distress Head Head exam: atraumatic and normocephalic Eye Eye exam: Present normal appearance, PERRL and EOMI ENT ENT exam: Present mucous membranes moist Neck Neck exam: Present normal inspection, full ROM and trachea midline Respiratory Respiratory exam: Present normal lung sounds bilaterally; Absent respiratory distress, wheezes, stridor, accessory muscle use or prolonged expiratory phase Cardiovascular Cardiovascular exam: Present regular rate, normal rhythm and systolic murmur Abdominal Exam Abdominal exam: Present soft; Absent distention, tenderness, guarding, rebound or rigidity Extremities Exam Extremities exam: Absent edema Neurological Exam Neurological exam: Present alert, oriented X3, CN II-XII intact and normal gait; Absent motor sensory deficit Skin Skin exam: Present warm and dry; Absent diaphoresis or erythema Medical Decision Making Medical Records Medical records reviewed: Yes I reviewed the patient's medical records. Abraham Inquiry Pt receiving controlled substance: No Abraham was queried for this patient: No Vital Signs: 07/09/23 17:58 07/09/23 18:30 07/09/23 19:00 Temperature 97.8 F Temperature Source Oral Pulse Rate 43 L 80 Pulse Rate [Right Brachial] 70 Respiratory Rate 18 17 16 Blood Pressure 145/83 H 151/85 H Blood Pressure [Right Arm] 168/92 H Blood Pressure Mean 117 Blood Pressure Mean [Right Arm] 117 Blood Pressure Source [Right Arm] Automatic Cuff Blood Pressure Position [Right Arm] Sitting 02 Sat by Pulse Oximetry 95 92 L 94 L Oxygen Delivery Method Room Air Room Air 07/09/23 19:30 07/09/23 20:00 07/09/23 20:30 Temperature Temperature Source Pulse Rate 71 75 Pulse Rate [Right Brachial] Respiratory Rate 19 15 18 Blood Pressure 141/79 H 139/82 153/89 H Blood Pressure [Right Arm] Blood Pressure Mean 108 110 110 Blood Pressure Mean [Right Arm] Blood Pressure Source [Right Arm] Blood Pressure Position [Right Arm] 02 Sat by Pulse Oximetry 96 95 97 Oxygen Delivery Method 07/09/23 21:00 07/09/23 21:50 07/09/23 22:01 Temperature Temperature Source Pulse Rate 65 62 Pulse Rate [Right Brachial] Respiratory Rate 14 17 18 Blood Pressure 153/88 H 132/87 154/78 H Blood Pressure [Right Arm] Blood Pressure Mean 105 102 103 Blood Pressure Mean [Right Arm] Blood Pressure Source [Right Arm] Blood Pressure Position [Right Arm] 02 Sat by Pulse Oximetry 98 98 98 Oxygen Delivery Method 07/09/23 22:30 07/09/23 22:56 Temperature 97.8 F Temperature Source Oral Pulse Rate 71 59 L Pulse Rate [Right Brachial] Respiratory Rate 16 17 Blood Pressure 157/85 H 144/79 H Blood Pressure [Right Arm] Blood Pressure Mean 98 Blood Pressure Mean [Right Arm] Blood Pressure Source [Right Arm] Blood Pressure Position [Right Arm] 02 Sat by Pulse Oximetry 98 Oxygen Delivery Method Room Air Lab Data Lab Results 07/09/23 17:53: WBC 8.3, RBC 4.34 L, Hgb 13.9 L, Hct 41.9 L, MCV 96.6 H, MCH 31.9 H, MCHC 33.0, RDW 14.8, Plt Count 142, MPV 8.4, Neut % (Auto) 52.5, Lymph % (Auto) 35.2, Payne % (Auto) 9.7 H, Eos % (Auto) 1.9, Baso % (Auto) 0.8, Neut # (Auto) 4.3, Lymph # (Auto) 2.9, Payne # (Auto) 0.8, Eos # (Auto) 0.2, Baso # (Auto) 0.1, Sodium 143, Potassium 4.5, Chloride 110 H, Carbon Dioxide 28, Anion Gap 9.5, BUN 27 H, Creatinine 1.10, Estimated Creat Clear 78, Estimated GFR 65, Est GFR ( Amer) 78, Glucose 120 H, Calcium 9.5, Total Bilirubin 0.6, AST 69 H, ALT 62, Alkaline Phosphatase 94, Troponin I < 0.01, Total Protein 7.1, Albumin 4.2, Globulin 2.9, Albumin/Globulin Ratio 1.4 07/09/23 19:35: SARS-CoV-2 (PCR) Not detected, Influenza A Untype (PCR) Not detected, Influenza Type B (PCR) Not detected 07/09/23 17:53 07/09/23 17:53 Orders (Tests/Meds): ED MEDICATIONS Generic Name Dose Route Start Last Admin Trade Name Freq PRN Reason Stop Dose Admin Sodium Chloride 10 ml 07/09/23 21:56 07/09/23 21:59 Sodium Chloride 0.9% 10ml Syr (Rad Only) IV 08/08/23 21:55 10 ml NEEDED PRN Administration Maintain IV Site Discontinued Medications Generic Name Dose Route Start Last Admin Trade Name Michael PRN Reason Stop Dose Admin Aspirin 324 mg 07/09/23 22:02 07/09/23 22:30 Aspirin 81mg Chewable Tablet PO 07/09/23 22:03 324 mg ONCE ONE Administration Clopidogrel Bisulfate 300 mg 07/09/23 22:14 07/09/23 22:27 Clopidogrel 300mg Tablet PO 07/09/23 22:15 300 mg ONCE ONE Administration Lactated Ringer's 1,000 mls @ 999 mls/hr 07/09/23 18:05 07/09/23 18:59 Lactated Ringer's 1000 Ml Bag IV 07/09/23 19:05 999 mls/hr .Q1H1M ONE Administration Iopamidol 100 ml 07/09/23 21:56 07/09/23 21:59 Iopamidol-370 (76%);100ml Bottle IV 07/09/23 21:57 100 ml ONCE ONE Administration Meclizine HCl 25 mg 07/09/23 20:38 07/09/23 21:35 Meclizine 25mg Tablet PO 07/09/23 20:39 25 mg ONCE ONE Administration Ondansetron HCl 4 mg 07/09/23 18:05 07/09/23 19:00 Ondansetron 4mg/2ml Vial IV 07/09/23 18:06 4 mg ONCE ONE Administration Sodium Chloride 50 ml 07/09/23 21:56 07/09/23 21:59 0.9 % Sodium Chloride 50 Ml Vial IV 07/09/23 21:57 50 ml ONCE ONE Administration Ticagrelor 180 mg 07/09/23 22:02 07/09/23 22:29 Ticagrelor 90mg Tablet PO 07/09/23 22:03 Not Given ONCE ONE ORDERS Category Date Time Status CT angio head Stat Cat Scan 07/09/23 20:[address] angio neck Stat Cat Scan 07/09/23 20:[address] head/brain wo con Stat Cat Scan 07/09/23 20:38 Completed CBC w/Auto Diff [Complete Blood Count Auto Diff] Stat Lab 07/09/23 17:53 Completed CMP [Comprehensive Metabolic Panel] Stat Lab 07/09/23 17:53 Completed Rapid PCR Covid and Flu A/B Stat Lab 07/09/23 19:35 Completed Trop I [Troponin I] Stat Lab 07/09/23 17:53 Completed Troponin I Q3H Lab 07/10/23 01:15 Ordered Troponin I Q3H Lab 07/10/23 04:15 Ordered ECG initial Besson Routine Y 07/09/23 17:57 Completed Medical Decision Narrative: 77 male with history of hypertension, hyperlipidemia, CAD status post four-vessel CABG, colon cancer status post resection and in remission, appendectomy presenting with dizziness. Patient states that he was diagnosed with flu just a couple days ago. Has been vomiting and having diarrhea since that time. Nonbloody, nonbilious vomiting, nonbloody diarrhea. Normal tenderness, chest pain, shortness of breath, but feeling dizzy with changes in position. History was obtained via conversation with patient and . On arrival, patient hemodynamically stable, alert, oriented x4, appropriate, GCS 15, moving all extremities spontaneously, pupils equal and reactive to light. Full physical exam performed and significant for well-appearing male in no acute distress. Mildly hypertensive. Nontachycardic, not hypoxemic. Intermittently retching. Cardiopulmonary exam significant only for systolic ejection murmur, but otherwise normal limits. Abdomen is soft, nontender, nondistended. Differential includes gastritis, enteritis, dehydration, among others. Patient was given fluid bolus, Zofran IV for symptomatic management and correction of underlying abnormalities. Workup independently interpreted and significant for nonactionable CBC or chemistry. Troponin negative. 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 Given patient's persistent dizziness and bidirectional horizontal nystagmus, images were sent to [facility]. See radiology read for full review of final results. Independent interpretation of EKG shows sinus rhythm with left bundle branch morphology noted Sgarbossa negative. Leftward axis deviation. [facility] stated patient is not tPA or interventional candidate, medication management only. Recommended aspirin and Plavix full dose 320/300 respectively, P2 Y12 lab (we do not have that here), as well as MRI. On reevaluation, patient persistently nauseated and vomiting. Given meclizine. He was also loaded with aspirin and Plavix. Hospital medicine was contacted and case was discussed at length, open to admission for medical management of presumed posterior CVA. Given patient presentation, workup, history, this most likely represents persistent dizziness, pursuing posterior CVA. Because patient high risk for clinical decompensation, deemed appropriate for inpatient admission. Results were relayed to patient who voiced understanding and patient was agreeable to inpatient admission and management. Patient was admitted to the hospital for further definitive management. Critical Care Critical Care Time Critical Care Time: No
[2023-07-09 18:14] LABS: Chloride 110 mmol/L (98-107)
[2023-07-09 18:15] LABS: Potassium 4.5 mmoL/L (3.5-5.1); Sodium 143 mmol/L (136-145)
[2023-07-09 18:17] LABS: Alanine Aminotransferase 62 U/L (12-78); Albumin Level 4.2 g/dl (3.5-5.0); Albumin/Globulin Ratio 1.4 (1.1-1.8); Alkaline Phosphatase 94 U/L (38-126); Anion Gap 9.5 mEq/L (5-15); Aspartate Amino Transferase 69 U/L (17-59); Bilirubin,Total 0.6 mg/dl (0.2-1.3); Blood Urea Nitrogen 27 mg/dl (9-20); Calcium 9.5 mg/dl (8.4-10.2); Carbon Dioxide 28 mmol/L (22.0-30.0); Creatinine Clearance Estimated 78 mL/min (50-200); Estimated Glomerular Filt Rate 65 ml/min (>60); GFR (African American) 78 ML/MIN (>60); Globulin 2.9 g/dL (1.3-3.2); Glucose 120 mg/dl (74-100); Total Protein,Serum 7.1 g/dl (6.3-8.2)
[2023-07-09 18:26] LABS: Basophils # 0.1 K/mm3 (0-0.2); Basophils % 0.8 % (0.1-2.0); Eosinophils # 0.2 K/mm3 (0.0-0.4); Eosinophils % 1.9 % (0.1-12.0); Hematocrit 41.9 % (42.0-52.0); Hemoglobin 13.9 g/dL (14.1-18.0); Lymphocytes # 2.9 K/mm3 (0.7-4.5); Lymphocytes % 35.2 % (10-50); Mean Corpuscular Hemoglobin 31.9 pg (27.0-31.2); Mean Corpuscular Volume 96.6 fl (80-94); Mean Platelet Volume 8.4 fl (7.4-10.4); Monocytes # 0.8 K/mm3 (0.1-1.0); Monocytes % 9.7 % (1.7-9.3); Neutrophils # 4.3 K/mm3 (1.8-7.8); Neutrophils % 52.5 % (37.0-80.0); Platelet Count 142 K/mm3 (142-424); Red Blood Count 4.34 M/mm3 (4.60-6.20); Red Cell Distribution Width 14.8 % (11.5-17.5); White Blood Count 8.3 K/mm3 (4.8-10.8)
[2023-07-09] MEDS: LACTATED RINGERS 1000ML 1,000 ML 999 ML IV (18:59)
[2023-07-09] MEDS: ONDANSETRON 4MG/2ML VIAL 4 MG IV (19:00)
--- NOTE | 2023-07-09 19:38 | PC.NURSE ---
pt swabbed and sent to lab
[2023-07-09 19:44] LABS: Coronavirus 19, PCR Not Detected (NotDetected); Influenza A, PCR Not Detected (NotDetected); Influenza B, PCR Not Detected (NotDetected)
--- NOTE | 2023-07-09 20:38 | CT_ITS ---
PROCEDURE INFORMATION: Exam: CTA Head With Contrast, Arteriography Exam date and time: 07/09/2023 9:35 PM Age: 77 years old Clinical indication: Stroke-like symptoms; Drowsines/somnolence; Additional info: Persisntent dizziness TECHNIQUE: Imaging protocol: Computed tomographic angiography of the head with contrast. Exam focused on the arteries. 3D rendering (Not supervised by radiologist): MIP and/or 3D reconstructed images were created by the technologist. Radiation optimization: All CT scans at this facility use at least one of these dose optimization techniques: automated exposure control; mA and/or kV adjustment per patient size (includes targeted exams where dose is matched to clinical indication); or iterative reconstruction. Contrast material: ISOVUE 370; Contrast volume: 70 ml; Contrast route: INTRAVENOUS (IV); COMPARISON: CT HEAD/BRAIN WO CON 07/09/2023 9:31 PM FINDINGS: ANTERIOR CIRCULATION: Right internal carotid artery: The right ICA petrous segment is unremarkable. Severe calcific atherosclerosis in the cavernous and supraclinoid segments with moderate stenosis of 50-60% in the supraclinoid segment. Right middle cerebral artery: Unremarkable. No occlusion or significant stenosis. No aneurysm. Right anterior cerebral artery: Unremarkable. No occlusion or significant stenosis. No aneurysm. The anterior communicating artery is unremarkable. Left internal carotid artery: The left ICA petrous segment is unremarkable. Moderate-severe calcific atherosclerosis in the cavernous and supraclinoid segments with moderate stenosis of 60% in the supraclinoid segment.. Left middle cerebral artery: Unremarkable. No occlusion or significant stenosis. No aneurysm. Left anterior cerebral artery: Unremarkable. No occlusion or significant stenosis. No aneurysm. POSTERIOR CIRCULATION: Right vertebral artery: Short segment severe calcific plaque in the V4 segment producing short segment moderate-severe stenosis of 60-70%. No occlusion. No aneurysm. Left vertebral artery: Moderate short segment calcific plaque in the left vertebral artery V4 segment producing short segment moderate stenosis of 50%. No occlusion. No aneurysm. Basilar artery: Unremarkable. No occlusion or significant stenosis. No aneurysm. Right posterior cerebral artery: Severe short segment proximal right AUTO CLAIM REPRESENTATIVE P1 segment stenosis of 70-80%. No occlusion. No aneurysm. Left posterior cerebral artery: Unremarkable. No occlusion or significant stenosis. No aneurysm. Superior sagittal sinus: The dural venous sinuses and major cortical veins enhance appropriately without evidence of thrombosis. Brain: No enhancing brain lesions or vascular malformations are identified. IMPRESSION: 1. No evidence of large vessel occlusion. No evidence of arterial dissection or aneurysm/pseudoaneurysm. 2. Moderate stenosis of 50-60% in the right ICA supraclinoid segment. 3. Severe stenosis in the proximal right AUTO CLAIM REPRESENTATIVE P1 segment estimated at 70-80%. 4. Moderate-severe stenosis in the distal right vertebral artery estimated at 60-70%. 5. Moderate stenosis in the left ICA supraclinoid segment estimated at 60%. 6. Mild stenosis in the distal left vertebral artery estimated at 50%. These findings initiated a critical results reporting process per stroke protocol. An addendum will be issued at the time of clinician notification.
--- NOTE | 2023-07-09 20:38 | CT_ITS ---
PROCEDURE INFORMATION: Exam: CTA Neck With Contrast Exam date and time: 07/09/2023 9:35 PM Age: 77 years old Clinical indication: Stroke-like symptoms; Dizziness/giddiness; Additional info: Persistent dizziness TECHNIQUE: Imaging protocol: Computed tomographic angiography of the neck with contrast. Exam focused on the cervical segments of the vasculature. 3D rendering (Not supervised by radiologist): MIP and/or 3D reconstructed images were created by the technologist. Radiation optimization: All CT scans at this facility use at least one of these dose optimization techniques: automated exposure control; mA and/or kV adjustment per patient size (includes targeted exams where dose is matched to clinical indication); or iterative reconstruction. Contrast material: ISOVUE; Contrast volume: 70 ml; Contrast route: INTRAVENOUS (IV); COMPARISON: CT ANGIO HEAD 07/09/2023 9:35 PM FINDINGS: Right common carotid artery: Mild tortuosity. No stenosis. No dissection or occlusion. Right internal carotid artery: Severe calcific atherosclerosis in the right carotid bulb/proximal ICA segment producing severe to critical stenosis of 90% or greater. No dissection or occlusion. Right external carotid artery: Mild proximal intimal thickening or soft plaque. No stenosis. No dissection or occlusion. Left common carotid artery: Mild proximal calcific plaque. No stenosis. No dissection or occlusion. Left internal carotid artery: Left carotid stent appears patent. Moderate calcific plaque in the left carotid bulb. Moderate left ICA tortuosity. No significant stenosis. No dissection or occlusion. Left external carotid artery: Normal. No stenosis. No dissection or occlusion. Right vertebral artery: Ostial calcific plaque without definite origin stenosis although streak/image noise limits characterization. V4 segment calcific plaque with suspected moderate-severe short segment stenosis of 60-70%. No dissection or occlusion. Left vertebral artery: Mild ostial calcific plaque without stenosis. Mild proximal tortuosity. V4 segment moderate short segment calcific plaque with mild 50% stenosis. No dissection or occlusion. Brachiocephalic artery: The brachiocephalic artery is unremarkable. Right subclavian artery: The right subclavian artery demonstrates mild calcific plaque without stenosis. Left subclavian artery: The left subclavian artery demonstrates mild calcific plaque without stenosis. Aorta: The visualized aortic arch demonstrates mild ectasia and calcific plaque without evidence of dissection or gross aneurysm. Thyroid: The thyroid gland is unremarkable. Soft tissues: No significant soft tissue swelling or hematoma. Bones/joints: No acute osseous abnormalities are identified. Moderate cervical spondylosis with multilevel bilateral foraminal stenoses and mild canal stenosis C3-C4 through C5-C6. Lungs: Mild pleuroparenchymal scarring in the pulmonary apices bilaterally. Septal thickening and peripheral interstitial prominence in the upper lobes may indicate an element of interstitial pulmonary edema. IMPRESSION: 1. Severe to critical stenosis of the proximal right ICA estimated at 90% or greater. 2. Carotid stent in the proximal left ICA is patent with no left ICA stenosis. 3. Short segment moderate-severe stenosis of 60-70% suspected in the distal right vertebral artery V4 segment. Moderate short segment stenosis in the left vertebral artery V4 segment. 4. Question changes of pulmonary edema in the visualized upper lung ugalde. 5. These findings initiated a critical results reporting process per stroke protocol. An addendum will be issued at the time of clinician notification. REFERENCES: NASCET CRITERIA. The degree of stenosis in the cervical segment of the internal carotid artery is based on NASCET criteria. Normal is no stenosis. Mild is less than 50% stenosis. Moderate is 50-69% stenosis. Severe is 70% to 99% stenosis. Total occlusion is no detectable patent lumen.
--- NOTE | 2023-07-09 20:38 | CT_ITS ---
PROCEDURE INFORMATION: Exam: CT Head Without Contrast Exam date and time: 07/09/2023 9:31 PM Age: 77 years old Clinical indication: Stroke-like symptoms; Dizziness/giddiness; Additional info: Persisntet dizziness TECHNIQUE: Imaging protocol: Computed tomography of the head without contrast. Radiation optimization: All CT scans at this facility use at least one of these dose optimization techniques: automated exposure control; mA and/or kV adjustment per patient size (includes targeted exams where dose is matched to clinical indication); or iterative reconstruction. Other technique: STROKE PROTOCOL was implemented. COMPARISON: No relevant prior studies available. FINDINGS: Brain: Moderate generalized cerebral/cerebellar atrophy. Moderate bilateral white matter hypodensities which are nonspecific but most commonly associated with chronic microvascular ischemia in this age group. The IACs are grossly normal. No extra-axial fluid collections. No evidence of acute intracranial hemorrhage. Cerebral/cerebellar cummings-white matter differentiation is well maintained. No CT evidence of large territory acute or subacute intracranial ischemia/infarct. 4 mm chronic lacunar infarct versus prominent perivascular space in the left subinsular region. No intracranial mass lesions. No midline shift or herniation. Cerebral ventricles: Mild compensatory ventriculomegaly secondary to central atrophy. Cavum vergae configuration incidentally noted. Pituitary gland and sella: The sella is grossly normal. Paranasal sinuses: Mucous retention cyst versus polyp formation in the left maxillary sinus and mild mucosal thickening in the right maxillary sinus suggesting mild chronic sinus inflammatory disease. No fluid levels. Visualized paranasal sinuses are otherwise clear. Mastoid air cells: Visualized mastoid air cells are clear. Orbital cavities: No acute intraorbital findings. Prior bilateral ocular lens extraction. Bones/joints: The calvarium and visualized facial bones are intact. Soft tissues: The scalp and visualized soft tissues demonstrate no acute abnormality. Vasculature: Moderate calcific atherosclerosis. No asymmetric vascular hyperdensities suggestive of thrombosis are identified. IMPRESSION: 1. No acute intracranial process. No intracranial hemorrhage or mass effect. 2. Atrophy and microvascular changes consistent with age. 3. Moderate calcific atherosclerosis. 4. Mild chronic sinusitis. 5. These findings initiated a critical results reporting process per stroke protocol. An addendum will be issued at the time of clinician notification. ASSESSMENT: ASPECTS ([place] Stroke Program Early CT Score) is 10.
[2023-07-09] MEDS: MECLIZINE 25MG TABLET 25 MG PO (21:35)
--- NOTE | 2023-07-09 21:54 | PC.NURSE ---
santiago notified to send imaging to [facility]
--- NOTE | 2023-07-09 21:58 | PC.NURSE ---
ED doctor on phone with [facility]
[2023-07-09] MEDS: IOPAMIDOL-370 (76%);100ML BOTTLE 100 ML IV (21:59)
[2023-07-09] MEDS: 0.9 % SODIUM CHLORIDE 50 ML VIAL IV (21:59)
[2023-07-09] MEDS: SODIUM CHLORIDE 0.9% 10ML SYR (RAD ONLY) 10 ML IV (21:59)
--- NOTE | 2023-07-09 22:16 | PC.NURSE ---
Called Haritha in RAD to check on CT reads. Attending speaking to [facility]
[2023-07-09] MEDS: CLOPIDOGREL 300MG TABLET 300 MG PO (22:27)
[2023-07-09] MEDS: ASPIRIN 81MG CHEWABLE TABLET 324 MG PO (22:30)
--- NOTE | 2023-07-09 22:32 | PC.NURSE ---
Admitting notified for OBS admission to [facility], Persistent Dizziness, [id number]
[2023-07-09 22:35] LABS: Troponin I < 0.01 ng/ml (0.00-0.034)
--- NOTE | 2023-07-09 22:51 | PC.NURSE ---
Report given to PAT Royal. Awaiting transport to 2nd floor
--- NOTE | 2023-07-09 23:05 | PC.NURSE ---
pt arrived to floor at this time
--- NOTE | 2023-07-09 23:42 | P.HP_ITS ---
History of Present Illness *Admission Date: 07/09/23 *Reason for visit:: Dizziness *History of present illness: This is a 77 male with PMHx of hypertension, hyperlipidemia, CAD status post four-vessel CABG, colon cancer status post resection and in remission presenting with dizziness. Patient states that he was diagnosed with flu just a couple days ago. Has been vomiting and having diarrhea since that time. History confirmed with at bedside. Nonbloody, nonbilious vomiting, nonbloody diarrhea. Normal tenderness, chest pain, shortness of breath, but feeling dizzy with changes in position. Admitted for treatment and management. [facility] Disclaimer: The information contained in this section may have been updated after the patient was seen, as this information can be updated by other users. Medical History (Updated 07/10/23 @ 05:09 by Galileo Ogden APRN) Colon cancer Diabetes mellitus, type 2 Hyperlipidemia Hypertension Internal carotid artery stent present Seizure disorder Surgical History H/O heart artery stent History of appendectomy History of colon resection History of colonoscopy History of esophagogastroduodenoscopy (EGD) Family History Other Family history of arthritis Family history of myocardial infarction Social History (Updated 07/09/23 @ 23:36 by Genny Beltran RN) Smoking Status: Former smoker tobacco type: cigarettes second hand exposure: No alcohol intake: never substance use type: denies use current occupational status: retired Travel in the last 8 weeks: None household members: spouse and family housing: house caffeine: No Review of Systems Review of Systems Review of systems:: pertinent systems reviewed and negative unless documented below Meds Home Medications and Allergies Home Medications Medication Instructions Recorded Confirmed Type aspirin 81 mg tablet,delayed 81 mg PO DAILY Heart disease 03/07/18 07/10/23 History release (Adult Low Dose Aspirin) clopidogrel 75 mg tablet 75 mg PO DAILY Blood Thinner 03/07/18 07/10/23 History krill oil 500 mg capsule 1 tab PO DAILY Cholesterol 03/07/18 07/10/23 History metoprolol succinate 25 mg 25 mg PO DAILY High Blood Pressure 03/07/18 07/10/23 History tablet,extended release 24 hr niacin 500 mg capsule,extended 1,000 mg PO HS Supplement 03/07/18 07/10/23 History release ascorbic acid (vitamin C) 500 mg 500 mg PO DAILY Supplement 12/06/20 07/10/23 History capsule cinnamon bark 500 mg capsule 1,000 mg PO DAILY Supplement 12/06/20 07/10/23 History (Cinnamon) enalapril maleate 5 mg tablet 5 mg PO BID High Blood Pressure 12/06/20 07/10/23 History furosemide 40 mg tablet 40 mg PO BIDL Fluid 12/06/20 07/10/23 History multivit with min-folic 1 tab PO DAILY Supplement 12/06/20 07/10/23 History acid-lutein 400 mcg-250 mcg chewable tablet (Centrum Silver) potassium chloride 20 mEq 40 meq PO DAILY Supplement 12/06/20 07/10/23 History tablet,extended release(part/cryst) cholecalciferol (vitamin D3) 25 25 mcg PO DAILY Supplement 07/10/23 07/10/23 History mcg (1,000 unit) tablet gabapentin 800 mg tablet 800 mg PO TID NERVE PAIN 07/10/23 07/10/23 History insulin glargine 100 15 unit SQ DAILY Diabetes 07/10/23 07/10/23 History unit-lixisenatide 33 mcg/mL subcutaneous pen (Soliqua 100/33) naproxen sodium 220 mg tablet 220 mg PO Q12HP PRN Mild Pain 07/10/23 07/10/23 History (Scale Score 1-4) pravastatin 40 mg tablet 40 mg PO HS Cholesterol 07/10/23 07/10/23 History New Prescriptions to Start Prescriptions: Allergies Allergy/AdvReac Type Severity Reaction Status Date / Time No Known Allergies Allergy Verified 06/23/22 10:42 Exam Data for Last 24 hours Vital signs and Labs for Last 24 Hours: Temp Pulse Resp BP Pulse Ox O2 Del Method 97.8 F 59 L 17 144/79 H 98 Room Air 07/09/23 22:56 07/09/23 22:56 07/09/23 22:56 07/09/23 22:56 07/09/23 22:30 07/09/23 22:56 Laboratory Results - last 24 hr 07/09/23 17:53: WBC 8.3, RBC 4.34 L, Hgb 13.9 L, Hct 41.9 L, MCV 96.6 H, MCH 31.9 H, MCHC 33.0, RDW 14.8, Plt Count 142, MPV 8.4, Neut % (Auto) 52.5, Lymph % (Auto) 35.2, [place] % (Auto) 9.7 H, Eos % (Auto) 1.9, Baso % (Auto) 0.8, Neut # (Auto) 4.3, Lymph # (Auto) 2.9, [place] # (Auto) 0.8, Eos # (Auto) 0.2, Baso # (Auto) 0.1, Sodium 143, Potassium 4.5, Chloride 110 H, Carbon Dioxide 28, Anion Gap 9.5, BUN 27 H, Creatinine 1.10, Estimated Creat Clear 78, Estimated GFR 65, Est GFR ( Amer) 78, Glucose 120 H, Calcium 9.5, Total Bilirubin 0.6, AST 69 H, ALT 62, Alkaline Phosphatase 94, Troponin I < 0.01, Total Protein 7.1, Albumin 4.2, Globulin 2.9, Albumin/Globulin Ratio 1.4 07/09/23 19:35: SARS-CoV-2 (PCR) Not detected, Influenza A Untype (PCR) Not detected, Influenza Type B (PCR) Not detected I & O for Last 24 hours: Intake & Output 07/06/23 07/07/23 07/08/23 07/09/23 23:59 23:59 23:59 23:59 Weight 99.337 kg Constitutional Constitutional: mild distress and cooperative *Routine HEENT Exam Head: Present normocephalic and atraumatic Eye: Present EOMI and PERRL ENT: Present mucous membranes moist *Routine Neck Exam Neck: Present supple, full ROM and trachea midline *Routine Respiratory Exam Respiratory: Present CTA bilaterally, normal respiratory effort and symmetric chest movement; Absent respiratory distress *Routine Cardiovascular Exam Cardiovascular: Present RRR, Normal S1 and Normal S2 *Routine Abdominal Exam Abdominal: Present soft and normoactive bowel sounds; Absent organomegaly *Routine Rectal Exam Rectal:: deferred *Routine Genitalia Exam Genitalia:: deferred *Routine Extremities Exam Extremities: Present full ROM; Absent cyanosis, clubbing or edema *Routine Skin Exam Skin: Present intact, dry and warm *Routine Neurological Exam Neurological: Present alert, oriented X3, normal reflexes, moving all extremities, nystagmus and normal speech; Absent sensory deficit or motor deficit Routine Psychiatric Exam Psychiatric: Present normal thought process, cooperative and good judgment H&P: Result Imaging and Cardiology CT scan - head: Status: image reviewed by me, Preliminary report and final report EKG: Status: image reviewed by me and Preliminary report 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 (4) Carotid stenosis, bilateral: Status: Acute Category: Medical Code(s): I65.23 - Occlusion and stenosis of bilateral carotid arteries (5) 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: Status: Acute Category: Medical Code(s): I65.03 - 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 (6) Internal carotid artery stent present: Status: Acute Category: Medical Code(s): Z95.828 - Presence of other vascular implants and grafts (7) Diabetes mellitus, type 2: Status: Acute Qualifiers: Diabetes mellitus complication status: with other specified complication Diabetes mellitus intermodal owner operator truck driver insulin use: with intermodal owner operator truck driver use Qualified Code(s): E11.69 - Type 2 diabetes mellitus with other specified complication; Z79.4 - intermodal owner operator truck driver (current) use of insulin Category: Medical Code(s): E11.9 - Type 2 diabetes mellitus without complications (8) History of colon cancer: Status: Acute Category: Medical Code(s): Z85.038 - Personal history of other malignant neoplasm of large intestine Plan 77 male with history of hypertension, hyperlipidemia, CAD status post four- vessel CABG, colon cancer status post resection and in remission presenting with dizziness. Patient states that he was diagnosed with flu just a couple days ago. On arrival, labs are groosly unremarkable. Troponin negative. EKG shows sinus rhythm with left bundle branch morphology noted Sgarbossa negative. CTA of the head and neck as well as CT of the head without concern for intracranial hemorrhage, but showed critical stenosis of the proximal right RCA and SHIPPING ASSISTANT. 70- 80%. Given patient's persistent dizziness and bidirectional horizontal nystagmus, [facility] stated patient is not tPA or interventional candidate, medication management only. Recommended aspirin and Plavix full dose 324/300 respectively, P2 Y12 lab (we do not have that here), as well as MRI. Findings were widely discussed with ER for admission. Plan as follow: -Persistent posterior dizziness and horizontal nystagmus in the setting of severe stenosis of the right posterior cerebral artery to rule out posterior Acute CVA: Stenosis of the bilateral carotid status post stent Stenosis of bilateral vertebral arteries Admit patient for medical management. Patient not a candidate for tPA dispo MedSurg. As a recommendation for neurosurgeon full dose of Plavix and 325 aspirin was given Patient on home Plavix and aspirin will continue the next dose of scheduled MRI ordered. Pending Neurocheck every 4h CTA stat of the brain if neuro condition deteriorates meclizine given at ER. With not improvement Will start scopolamine patch and hydration Permissive hypertension -Diabetes Resume home insulin. Lantus 12 unit Accu-Chek Sliding scale History of colon cancer in remission Condition reviewed. SCD for DVT prophylaxis. On Protonix for GI bleed protection and GERD Plan discussed with patient and . They agree for medical management. Educated on follow-up appointment with the neurologist after discharge. Full code Rounded on patient after nurse practitioner. Personally examined and interviewed patient. Agree with exam findings and care plan as documented.
[2023-07-10] VITALS: BP 148/79; PULSE 60; RESP 16; TEMP 36.4; O2SAT 98
[2023-07-10] MEDS: SCOPOLAMINE 1.5MG/72HRS PATCH 1 EACH TD (00:15)
[2023-07-10 01:47] LABS: Troponin I < 0.01 ng/ml (0.00-0.034)
[2023-07-10 04:00] VITALS: BP 118/60; PULSE 58; RESP 16; TEMP 36.3; O2SAT 99; BMI 29.7
--- NOTE | 2023-07-10 04:18 | PC.NURSE ---
Pt arrived to the unit @ 2305, Pt is alert and oriented x4 and reports dizziness. Pt is currently on 3L of O2 and is tolerating that well. Pt C/O nausea and has been treated per Mar. Pt denies pain and needs at this time
[2023-07-10 04:26] LABS: Basophils % 0.5 % (0.1-2.0); Eosinophils # 0.1 K/mm3 (0.0-0.4); Eosinophils % 0.9 % (0.1-12.0); Hematocrit 38.6 % (42.0-52.0); Hemoglobin 12.9 g/dL (14.1-18.0); Lymphocytes # 2.4 K/mm3 (0.7-4.5); Lymphocytes % 30.9 % (10-50); Mean Corpuscular HGB Conc 33.3 g/dL (31.8-35.4); Mean Corpuscular Hemoglobin 32.4 pg (27.0-31.2); Mean Corpuscular Volume 97.4 fl (80-94); Mean Platelet Volume 8.5 fl (7.4-10.4); Monocytes # 0.6 K/mm3 (0.1-1.0); Monocytes % 7.9 % (1.7-9.3); Neutrophils # 4.6 K/mm3 (1.8-7.8); Neutrophils % 59.8 % (37.0-80.0); Platelet Count 133 K/mm3 (142-424); Red Blood Count 3.97 M/mm3 (4.60-6.20); Red Cell Distribution Width 14.9 % (11.5-17.5); White Blood Count 7.7 K/mm3 (4.8-10.8)
[2023-07-10 04:32] LABS: Chloride 109 mmol/L (98-107); Potassium 5.1 mmoL/L (3.5-5.1); Sodium 141 mmol/L (136-145)
[2023-07-10 04:34] LABS: Alanine Aminotransferase 47 U/L (12-78); Aspartate Amino Transferase 47 U/L (17-59); Blood Urea Nitrogen 25 mg/dl (9-20); Creatinine Clearance Estimated 86 mL/min (50-200); Estimated Glomerular Filt Rate 72 ml/min (>60); GFR (African American) 87 ML/MIN (>60)
[2023-07-10 04:35] LABS: Albumin Level 3.5 g/dl (3.5-5.0); Albumin/Globulin Ratio 1.5 (1.1-1.8); Alkaline Phosphatase 74 U/L (38-126); Anion Gap 10.1 mEq/L (5-15); Bilirubin,Total 0.9 mg/dl (0.2-1.3); Calcium 9.1 mg/dl (8.4-10.2); Carbon Dioxide 27 mmol/L (22.0-30.0); Globulin 2.4 g/dL (1.3-3.2); Glucose 115 mg/dl (74-100); Magnesium 2.2 mg/dl (1.6-2.3); Total Protein,Serum 5.9 g/dl (6.3-8.2)
[2023-07-10 04:44] LABS: Troponin I 0.01 ng/ml (0.00-0.034)
[2023-07-10 05:51] LABS: POC Glucose,Bedside 118 (70-110)
[2023-07-10] MEDS: 0.9 % SODIUM CHLORIDE 1000ML 1,000 ML 100 ML IV (06:00)
[2023-07-10 08:00] VITALS: BP 117/67; PULSE 56; RESP 19; TEMP 36.6; O2SAT 96
--- NOTE | 2023-07-10 08:18 | EXP.ACUTE.PN ---
Subjective *Date: 07/10/23 *Time: 16:47 Interval history: Seeing some improvement in his dizziness this morning. Able to open eyes without vomiting. Would like to try diet. Continues to require 3 L nasal cannula oxygen. No chest pain, denies shortness of breath. No focal neurologic deficit Medical Exam Vital signs and Labs for Last 24 Hours: Vital Signs Temp Pulse Pulse Resp BP BP Pulse Ox 07/10/23 06:52 07/10/23 04:00 97.4 F L 58 L 16 118/60 99 07/10/23 05:00 07/10/23 03:00 07/10/23 00:00 97.5 F L 60 16 148/79 H 98 07/10/23 01:00 07/09/23 23:00 98 07/09/23 23:00 07/09/23 22:56 97.8 F 59 L 17 144/79 H 07/09/23 22:30 71 16 157/85 H 98 07/09/23 22:01 62 18 154/78 H 98 07/09/23 21:50 65 17 132/87 98 07/09/23 21:00 14 153/88 H 98 07/09/23 20:30 75 18 153/89 H 97 07/09/23 20:00 71 15 139/82 95 07/09/23 19:30 19 141/79 H 96 07/09/23 19:00 80 16 151/85 H 94 L 07/09/23 18:30 43 L 17 145/83 H 92 L 07/09/23 17:58 97.8 F 70 18 168/92 H 95 O2 Del Method O2 Flow Rate 07/10/23 06:52 Nasal Cannula 3 07/10/23 04:00 Nasal Cannula 2 07/10/23 05:00 Nasal Cannula 3 07/10/23 03:00 Nasal Cannula 3 07/10/23 00:00 Nasal Cannula 3 07/10/23 01:00 Nasal Cannula 3 07/09/23 23:00 Nasal Cannula 3 07/09/23 23:00 Nasal Cannula 3 07/09/23 22:56 Room Air 07/09/23 22:30 07/09/23 22:01 07/09/23 21:50 07/09/23 21:00 07/09/23 20:30 07/09/23 20:00 07/09/23 19:30 07/09/23 19:00 07/09/23 18:30 Room Air 07/09/23 17:58 Room Air Intake and Output 07/09/23 07/10/23 07/10/23 23:59 07:59 15:59 Intake Total 0 / 0 Output Total 600 / 600 Balance -600 / -600 Intake: Intake, Oral Amount 0 / 0 Output: Output, Urine Amount 600 / 600 Other: Number of Unmeasured Voids 0 Weight 99.337 kg 99.427 kg Patient Weight 07/10/23 23:59 Weight 99.427 kg Laboratory Results - last 24 hr 07/09/23 17:53: WBC 8.3, RBC 4.34 L, Hgb 13.9 L, Hct 41.9 L, MCV 96.6 H, MCH 31.9 H, MCHC 33.0, RDW 14.8, Plt Count 142, MPV 8.4, Neut % (Auto) 52.5, Lymph % (Auto) 35.2, [place] % (Auto) 9.7 H, Eos % (Auto) 1.9, Baso % (Auto) 0.8, Neut # (Auto) 4.3, Lymph # (Auto) 2.9, [place] # (Auto) 0.8, Eos # (Auto) 0.2, Baso # (Auto) 0.1, Sodium 143, Potassium 4.5, Chloride 110 H, Carbon Dioxide 28, Anion Gap 9.5, BUN 27 H, Creatinine 1.10, Estimated Creat Clear 78, Estimated GFR 65, Est GFR ( Amer) 78, Glucose 120 H, Calcium 9.5, Total Bilirubin 0.6, AST 69 H, ALT 62, Alkaline Phosphatase 94, Troponin I < 0.01, Total Protein 7.1, Albumin 4.2, Globulin 2.9, Albumin/Globulin Ratio 1.4 07/09/23 19:35: SARS-CoV-2 (PCR) Not detected, Influenza A Untype (PCR) Not detected, Influenza Type B (PCR) Not detected 07/10/23 01:20: Troponin I < 0.01 07/10/23 04:15: WBC 7.7, RBC 3.97 L, Hgb 12.9 L, Hct 38.6 L, MCV 97.4 H, MCH 32.4 H, MCHC 33.3, RDW 14.9, Plt Count 133 L, MPV 8.5, Neut % (Auto) 59.8, Lymph % (Auto) 30.9, [place] % (Auto) 7.9, Eos % (Auto) 0.9, Baso % (Auto) 0.5, Neut # (Auto) 4.6, Lymph # (Auto) 2.4, [place] # (Auto) 0.6, Eos # (Auto) 0.1, Baso # (Auto) 0.0, Sodium 141, Potassium 5.1, Chloride 109 H, Carbon Dioxide 27, Anion Gap 10.1, BUN 25 H, Creatinine 1.00, Estimated Creat Clear 86, Estimated GFR 72, Est GFR ( Amer) 87, Glucose 115 H, Calcium 9.1, Magnesium 2.2, Total Bilirubin 0.9, AST 47 D, ALT 47, Alkaline Phosphatase 74, Troponin I 0.01, Total Protein 5.9 L, Albumin 3.5 D, Globulin 2.4, Albumin/Globulin Ratio 1.5 07/10/23 05:44: POC Glucose 118 H I & O for Labs for Last 24 Hours: Intake & Output 07/07/23 07/08/23 07/09/23 07/10/23 23:59 23:59 23:59 23:59 Intake Total 0 / 0 Output Total 600 / 600 Balance -600 / -600 Weight 99.337 kg 99.427 kg Constitutional: Present no acute distress, average body habitus and chronically ill appearing Head: Present atraumatic and normocephalic Eyes: Absent eye pain ENT: Present normal exam Neck: Present normal inspection Respiratory: Present normal respiratory effort and able to speak in complete sentences; Absent rhonchi, wheezes or crackles Cardiac: Present Reg Rate and Rhythm GI: Present soft and normal bowel sounds; Absent distention or tenderness Extremities: Present normal inspection and full ROM Skin: Present intact; Absent erythema Neuro: Present Grossly Intact, alert, awake, oriented x 3 and moves all extremities Comment:: Pupils equal and reactive, no focal loss of sensation or motor weakness. Dizzy when he turns his head quickly. 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 (4) Carotid stenosis, bilateral: Status: Acute Category: Medical Code(s): I65.23 - Occlusion and stenosis of bilateral carotid arteries (5) 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: Status: Acute Category: Medical Code(s): I65.03 - 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 (6) Internal carotid artery stent present: Status: Acute Category: Medical Code(s): Z95.828 - Presence of other vascular implants and grafts (7) Diabetes mellitus, type 2: Status: Acute Qualifiers: Diabetes mellitus bed bug exterminator insulin use: with bed bug exterminator use Diabetes mellitus complication status: with other specified complication Qualified Code(s): E11.69 - Type 2 diabetes mellitus with other specified complication; Z79.4 - extermination supervisor (current) use of insulin Category: Medical Code(s): E11.9 - Type 2 diabetes mellitus without complications (8) History of colon cancer: Status: Acute Category: Medical Code(s): Z85.038 - Personal history of other malignant neoplasm of large intestine Plan 77 male with history of hypertension, hyperlipidemia, CAD status post four-vessel CABG, colon cancer status post resection and in remission presenting with dizziness. Patient states that he was diagnosed with flu just a couple days ago. On arrival, labs are groosly unremarkable. Troponin negative. EKG shows sinus rhythm with left bundle branch morphology noted Sgarbossa negative. 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 Given patient's persistent dizziness and bidirectional horizontal nystagmus, [facility] stated patient is not tPA or interventional candidate, medication management only. Recommended aspirin and Plavix full dose 324/300 respectively, P2 Y12 lab (we do not have that here), as well as MRI. Findings were widely discussed with ER for admission. Seeing some clinical improvement. Still awaiting MRI. Plan as follow: -Persistent posterior dizziness and horizontal nystagmus in the setting of severe stenosis of the right posterior cerebral artery to rule out posterior Acute CVA: Stenosis of the bilateral carotid status post stent Stenosis of bilateral vertebral arteries Aspirin ems daily, Plavix 25 mg daily. MRI ordered. Pending Neurocheck every 4h Continue pravastatin 40 mg daily CTA stat of the brain if neuro condition deteriorates Tolerating scopolamine patch with improvement. Permissive hypertension; holding home enalapril and metoprolol -Diabetes: A1C pensing, sliding scale insulin with fingersticks ACHS -Continue home gabapentin for neuropathy lovenox 40mg daily subcu On Protonix for GI bleed protection and GERD advance to regular diet Full code
[2023-07-10 11:02] LABS: POC Glucose,Bedside 103 (70-110)
[2023-07-10] MEDS: PANTOPRAZOLE 40MG TABLET 40 MG PO (12:05)
[2023-07-10] MEDS: ASPIRIN 325MG TABLET 325 MG PO (12:12)
[2023-07-10] MEDS: CLOPIDOGREL 75MG TAB 75 MG PO (12:12)
[2023-07-10] MEDS: ENOXAPARIN 40MG/0.4ML SYRINGE 40 MG SQ (12:13)
--- NOTE | 2023-07-10 13:32 | HMH.PHAINT1 ---
Pharmacy Intervention Comments: MEDICATION RECONCILIATION COMPLETE USING LIST FROM DR BARR'S OFFICE, EXTERNAL PHARMACY FILL HISTORY, AND DONY REPORT.
[2023-07-10 16:00] VITALS: BP 112/54; PULSE 56; RESP 18; TEMP 36.4; O2SAT 98
[2023-07-10 16:23] LABS: POC Glucose,Bedside 135 (70-110)
--- NOTE | 2023-07-10 16:43 | PC.NURSE ---
A&OX4. TOLERATING 3LNC WELL THUS FAR, JUST TURNED PT DOWN TO 2LNC, O2 SAT 98%. WILL CONTINUE TO WEAN AT PT TOLERATES. PT HAS HAD NO NEEDS OR C/O NOTED THUS FAR. NO REPORTS OF NA/VO. TOLERATING FULL LIQUID DIET WELL, HAS A LARGE APPETITE. AT BEDSIDE MAJORITY OF THE DAY. IN VERY GOOD SPIRITS. VSS.
--- NOTE | 2023-07-10 17:09 | PC.NURSE ---
Spoke with Khadra in care management about MRI order. OK to proceed with MRI.
--- NOTE | 2023-07-10 17:12 | MR_ITS ---
PROCEDURE INFORMATION: Exam: MR Head Without Contrast Exam date and time: 07/10/2023 5:21 PM Age: 77 years old Clinical indication: Dizziness TECHNIQUE: Imaging protocol: Magnetic resonance imaging of the head without contrast. COMPARISON: 1. CT ANGIO HEAD 07/09/2023 9:[address] HEAD/BRAIN WO CON 07/09/2023 9:31 PM FINDINGS: Limitations: The study is motion degraded. Brain: No acute infarct. No hemorrhage. Stable involutional changes of the brain. No mass effect. Small chronic lacunar type infarcts in the left caudate nucleus head and left external capsule are unchanged. Cerebral ventricles: Stable ventricular size with stable cavum septum pellucidum et vergae. No ventriculomegaly. Bones/joints: Unremarkable. Paranasal sinuses: Scattered paranasal sinus mucosal thickening, without air-fluid level present. Mastoid air cells: Normal as visualized. No mastoid effusion. Orbital cavities: Bilateral lens replacements. Soft tissues: Unremarkable. IMPRESSION: No acute intracranial abnormality.
[2023-07-10 18:48] VITALS: O2SAT 91
[2023-07-10] MEDS: PRAVASTATIN 40MG TAB 40 MG PO (20:56)
[2023-07-10] MEDS: humaLOG 100 UNITS/ML 3ML VIAL (SSI) SQ (20:56)
[2023-07-10 21:37] VITALS: BP 110/56; PULSE 68; RESP 14; TEMP 37.1; O2SAT 91
[2023-07-11] VITALS: BP 124/63; PULSE 69; RESP 16; TEMP 36.8; O2SAT 87
[2023-07-11 04:00] VITALS: BP 133/107; PULSE 71; RESP 18; TEMP 36.6; O2SAT 96; BMI 30.9
[2023-07-11 05:31] LABS: POC Glucose,Bedside 105 (70-110)
--- NOTE | 2023-07-11 07:59 | EXP.DC.SUM ---
General Admission date:: 07/09/23 Discharge date: 07/11/23 HPI HPI HPI: This is a 77 male with PMHx of hypertension, hyperlipidemia, CAD status post four-vessel CABG, colon cancer status post resection and in remission presenting with dizziness. Patient states that he was diagnosed with flu just a couple days ago. Has been vomiting and having diarrhea since that time. History confirmed with at bedside. Nonbloody, nonbilious vomiting, nonbloody diarrhea. Normal tenderness, chest pain, shortness of breath, but feeling dizzy with changes in position. Admitted for treatment and management. Hospital Course Hospital Course Hospital Course: 77 male with history of hypertension, hyperlipidemia, CAD status post four-vessel CABG, colon cancer status post resection and in remission presenting with dizziness. Patient states that he was diagnosed with flu just a couple days ago. On arrival, labs are groosly unremarkable. Troponin negative. EKG shows sinus rhythm with left bundle branch morphology noted Sgarbossa negative. CTA of the head and neck as well as CT of the head without concern for intracranial hemorrhage, but showed critical stenosis of the proximal right RCA and [employer]. 70-80%. Given patient's persistent dizziness and bidirectional horizontal nystagmus, [facility] stated patient is not tPA or interventional candidate, medication management only. Recommended aspirin and Plavix full dose 324/300 respectively, P2 Y12 lab (we do not have that here), as well as MRI. Findings were widely discussed with ER for admission. Patient clinically has improved. MRI obtained with no acute strokes. Stable for discharge home. Recommend outpatient follow-up with neurology. Problems addressed as follows: -Persistent posterior dizziness and horizontal nystagmus in the setting of severe stenosis of the right posterior cerebral artery to rule out posterior Acute CVA: Stenosis of the bilateral carotid status post stent Stenosis of bilateral vertebral arteries Patient initiated on aspirin and Plavix. Continue 81 mg aspirin daily and 75 mg Plavix daily. Imaging reviewed including CTAs of the head and neck and MRI of the head. No acute stroke. Does have multivessel stenoses but no beni occlusions. Neurologic symptoms improved with resolution of nystagmus and emesis related to vertigo. Continue statin. Scopolamine patch administered, improvement in dizziness after starting patch. Will hold blood pressure medications and allow for permissive hypertension. Changes made to med rec at discharge. -Diabetes: A1C 6.1. Sliding scale insulin during admission. Resume home regimen at discharge. Well-controlled. -Continue home gabapentin for neuropathy Contacted quality control coordinator with [facility]. Referred to stroke follow-up clinic. Information provided in discharge packet. Spent 30 minutes in discharge counseling, documentation, chart review, and direct care with patient. Exam Data for Last 24 hours Vital signs and Labs for Last 24 Hours: Temp Pulse Resp BP Pulse Ox O2 Del Method O2 Flow Rate 97.9 F 71 18 133/107 H 96 Nasal Cannula 2 07/11/23 04:00 07/11/23 04:00 07/11/23 04:00 07/11/23 04:00 07/11/23 04:00 07/11/23 06:22 07/11/23 06:22 Laboratory Results - last 24 hr 07/10/23 10:47: POC Glucose 103 07/10/23 16:12: POC Glucose 135 H 07/11/23 05:21: POC Glucose 105 I & O for Last 24 hours: Intake & Output 07/08/23 07/09/23 07/10/23 07/11/23 23:59 23:59 23:59 23:59 Intake Total 970 / 970 Output Total 1850 / 2150 300 / 300 Balance -880 / -1180 -300 / -300 Weight 99.337 kg 99.427 kg 103.504 kg Constitutional Constitutional: no acute distress, obese, chronically ill appearing and cooperative *Routine HEENT Exam Head: Present normocephalic Eye: Present EOMI and PERRL ENT: Present mucous membranes moist *Routine Neck Exam Neck: Present supple; Absent lymphadenopathy *Routine Respiratory Exam Respiratory: Present CTA bilaterally; Absent rhonchi, wheezes or crackles *Routine Cardiovascular Exam Cardiovascular: Present RRR *Routine Abdominal Exam Abdominal: Present soft and normoactive bowel sounds; Absent tenderness or distended *Routine Rectal Exam Patient deferred: visual exam *Routine Exam Patient deferred: penile exam *Routine Extremities Exam Extremities: Absent cyanosis, clubbing or edema *Routine Skin Exam Skin: Present warm; Absent rash *Routine Neurological Exam Neurological: Present alert, oriented X3, CN II-XII intact, moving all extremities and vision grossly intact; Absent sensory deficit, motor deficit, altered mental status or nystagmus Results Data Completed and Pending Labs on day of discharge: Labs from last 24 hours 07/11/23 07/10/23 07/10/23 05:21 16:12 10:47 POC Glucose 105 135 H 103 DS: Diagnosis Discharge Diagnosis (1) Persistent postural-perceptual dizziness: Status: Acute Code(s): H81.8X9 - Other disorders of vestibular function, unspecified ear (2) Unspecified nystagmus: Status: Acute Code(s): H55.00 - Unspecified nystagmus (3) 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: Status: Acute Code(s): I66.21 - 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 (4) Carotid stenosis, bilateral: Status: Acute Code(s): I65.23 - Occlusion and stenosis of bilateral carotid arteries (5) 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: Status: Acute Code(s): I65.03 - 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 (6) Internal carotid artery stent present: Status: Acute Code(s): Z95.828 - Presence of other vascular implants and grafts (7) Diabetes mellitus, type 2: Status: Acute Code(s): E11.9 - Type 2 diabetes mellitus without complications Qualifiers: Diabetes mellitus complication status: with other specified complication Diabetes mellitus terminal manager insulin use: with residential use Qualified Code(s): E11.69 - Type 2 diabetes mellitus with other specified complication; Z79.4 - buttermaker (current) use of insulin (8) History of colon cancer: Status: Acute Code(s): Z85.038 - Personal history of other malignant neoplasm of large intestine Meds Home Medications and Allergies Home Medications Medication Instructions Recorded Confirmed Type aspirin 81 mg tablet,delayed 81 mg PO DAILY Heart disease 03/07/18 07/10/23 History release (Adult Low Dose Aspirin) krill oil 500 mg capsule 1 tab PO DAILY Cholesterol 03/07/18 07/10/23 History metoprolol succinate 25 mg 25 mg PO DAILY High Blood Pressure 03/07/18 07/10/23 History tablet,extended release 24 hr niacin 500 mg capsule,extended 1,000 mg PO HS Supplement 03/07/18 07/10/23 History release ascorbic acid (vitamin C) 500 mg 500 mg PO DAILY Supplement 12/06/20 07/10/23 History capsule cinnamon bark 500 mg capsule 1,000 mg PO DAILY Supplement 12/06/20 07/10/23 History (Cinnamon) furosemide 40 mg tablet 40 mg PO BIDL Fluid 12/06/20 07/10/23 History multivit with min-folic 1 tab PO DAILY Supplement 12/06/20 07/10/23 History acid-lutein 400 mcg-250 mcg chewable tablet (Centrum Silver) potassium chloride 20 mEq 40 meq PO DAILY Supplement 12/06/20 07/10/23 History tablet,extended release(part/cryst) cholecalciferol (vitamin D3) 25 25 mcg PO DAILY Supplement 07/10/23 07/10/23 History mcg (1,000 unit) tablet gabapentin 800 mg tablet 800 mg PO TID NERVE PAIN 07/10/23 07/10/23 History insulin glargine 100 15 unit SQ DAILY Diabetes 07/10/23 07/10/23 History unit-lixisenatide 33 mcg/mL subcutaneous pen (Soliqua 100/33) naproxen sodium 220 mg tablet 220 mg PO Q12HP PRN Mild Pain 07/10/23 07/10/23 History (Scale Score 1-4) pravastatin 40 mg tablet 40 mg PO HS Cholesterol 07/10/23 07/10/23 History clopidogrel 75 mg tablet 75 mg PO DAILY Blood Thinner 30 07/11/23 Rx days #30 tabs scopolamine base 1 mg over 3 days 1 patch transdermal Q3D PRN nausea 07/11/23 Rx transdermal patch and vomiting #10 ea New Prescriptions to Start Prescriptions: Valentín Omer scopolamine base Valentín Solares Allergies Allergy/AdvReac Type Severity Reaction Status Date / Time No Known Allergies Allergy Verified 06/23/22 10:42 Discharge Plan Disposition Patient Disposition: Home, Self-Care Condition: Fair Follow up Plan Follow up with: Santiago Boss MD [Primary Care Provider] - Enter time for follow up Prescriptions/Medication Reconciliation: New scopolamine base 1 mg over 3 days patch 3 day 1 patch transdermal Q3D PRN (Reason: nausea and vomiting) Qty: 10 0RF Continued aspirin [Adult Low Dose Aspirin] 81 mg tablet,delayed release (DR/EC) 81 mg PO DAILY metoprolol succinate 25 mg tablet extended release 24 hr 25 mg PO DAILY niacin 500 mg capsule, extended release 1,000 mg PO HS krill oil 500 mg capsule 1 tab PO DAILY potassium chloride 20 mEq tablet,ER particles/crystals 40 meq PO DAILY furosemide 40 mg tablet 40 mg PO BIDL cinnamon bark [Cinnamon] 500 mg capsule 1,000 mg PO DAILY ascorbic acid (vitamin C) 500 mg capsule 500 mg PO DAILY Centrum Silver 400-250 mcg tablet,chewable 1 tab PO DAILY pravastatin 40 mg tablet 40 mg PO HS gabapentin 800 mg tablet 800 mg PO TID naproxen sodium 220 mg Tablet 220 mg PO Q12HP PRN (Reason: Mild Pain (Scale Score 1-4)) cholecalciferol (vitamin D3) 25 mcg (1,000 unit) Tablet 25 mcg PO DAILY Soliqua 100/33 100 unit-33 mcg/mL Insulin Pen 15 unit SQ DAILY clopidogrel 75 mg tablet 75 mg PO DAILY 30 Days Qty: 30 0RF Discontinued enalapril maleate 5 mg tablet 5 mg PO BID Problem Reconciliation Problems Reviewed?: Yes Patient Discharge Instructions ACTIVITY: Continue current activity DIET: continue same diet Additional Instructions: [facility] [address] [facility] in [place] [facility]. Referred to Denisha Gómez. Phone number [phone] Patient Instructions: DI for Dizziness-Nonvertigo, DI for Carotid Artery Stenosis Providers Primary Care Provider: Santiago Boss Admit Provider: Valentín Solares Attending Provider: Valentín Solares
[2023-07-11 08:00] VITALS: BP 140/63; PULSE 81; RESP 16; TEMP 36.6; O2SAT 94
[2023-07-11] MEDS: ENOXAPARIN 40MG/0.4ML SYRINGE 40 MG SQ (08:08)
[2023-07-11] MEDS: CLOPIDOGREL 75MG TAB 75 MG PO (08:08)
[2023-07-11] MEDS: PANTOPRAZOLE 40MG TABLET 40 MG PO (08:08)
[2023-07-11] MEDS: ASPIRIN 325MG TABLET 325 MG PO (08:08)
[2023-07-11 09:32] LABS: Chloride 107 mmol/L (98-107); Potassium 4.5 mmoL/L (3.5-5.1); Sodium 139 mmol/L (136-145)
[2023-07-11 09:34] LABS: Basophils % 0.5 % (0.1-2.0); Eosinophils # 0.2 K/mm3 (0.0-0.4); Eosinophils % 2.8 % (0.1-12.0); Hematocrit 39.8 % (42.0-52.0); Hemoglobin 13.2 g/dL (14.1-18.0); Lymphocytes % 25.3 % (10-50); Mean Corpuscular HGB Conc 33.2 g/dL (31.8-35.4); Mean Corpuscular Hemoglobin 32.2 pg (27.0-31.2); Mean Corpuscular Volume 96.9 fl (80-94); Mean Platelet Volume 8.7 fl (7.4-10.4); Monocytes # 0.5 K/mm3 (0.1-1.0); Monocytes % 6.7 % (1.7-9.3); Neutrophils % 64.8 % (37.0-80.0); Platelet Count 109 K/mm3 (142-424); Red Blood Count 4.11 M/mm3 (4.60-6.20); Red Cell Distribution Width 14.7 % (11.5-17.5); White Blood Count 7.8 K/mm3 (4.8-10.8)
[2023-07-11 09:35] LABS: Alanine Aminotransferase 61 U/L (12-78); Albumin Level 3.8 g/dl (3.5-5.0); Albumin/Globulin Ratio 1.5 (1.1-1.8); Alkaline Phosphatase 99 U/L (38-126); Anion Gap 5.5 mEq/L (5-15); Aspartate Amino Transferase 59 U/L (17-59); Bilirubin,Total 0.6 mg/dl (0.2-1.3); Blood Urea Nitrogen 19 mg/dl (9-20); Calcium 8.6 mg/dl (8.4-10.2); Carbon Dioxide 31 mmol/L (22.0-30.0); Creatinine Clearance Estimated 81 mL/min (50-200); Estimated Glomerular Filt Rate 65 ml/min (>60); GFR (African American) 78 ML/MIN (>60); Globulin 2.6 g/dL (1.3-3.2); Glucose 115 mg/dl (74-100); Total Protein,Serum 6.4 g/dl (6.3-8.2)
[2023-07-11 09:59] LABS: Hemoglobin A1C 6.1 % (4.0-6.0)
== END 2023-07-11 11:30 | disposition home or self-care (01) ==
LOC: ER 17:45 → 2ND 22:56
PROVIDERS: Nurse Practitioner Family; Admitting Provider Internal Medicine Adolescent Medicine; Emergency Provider Emergency Medicine; PCP Internal Medicine Adolescent Medicine; Visit Provider Internal Medicine Adolescent Medicine
DX: H81.8X9 Other disorders of vestibular function, unspecified ear (principal); H55.09 Other forms of nystagmus; I66.21 Occlusion and stenosis of right posterior cerebral artery; I65.23 Occlusion and stenosis of bilateral carotid arteries; I65.03 Occlusion and stenosis of bilateral vertebral arteries; Z95.828 Presence of other vascular implants and grafts; E11.69 Type 2 diabetes mellitus with other specified complication; Z79.4 Long term (current) use of insulin; Z85.038 Personal history of other malignant neoplasm of large intestine; F17.210 Nicotine dependence, cigarettes, uncomplicated; R06.02 Shortness of breath; I10 Essential (primary) hypertension; E78.5 Hyperlipidemia, unspecified; Z95.1 Presence of aortocoronary bypass graft
CPT/HCPCS: G0379; 36415; 70450; 70496; 70498; 70551; 80053; 82962; 83036; 83735; 84484; 85025; 87636; 93005; G0378; J2405; Q9967

== ENCOUNTER 2023-08-27 06:22 | Day surgery (SDC) | payer MEDICARE, SELFPAY ==
[2023-08-24 15:15] VITALS: BMI 29.7
[2023-08-27] VITALS (7 sets, daily range): BP systolic 134–147; BP diastolic 61–73; PULSE 63–88; RESP 12–18; TEMP 36.1; O2SAT 92–96
--- NOTE | 2023-08-27 06:25 | P.HP_ITS ---
HPI HPI HPI: Patient is a 78-year-old male with history of colon cancer who presents for colonoscopy. Primary care provider is Santiago Boss MD. He has been somewhat of a poor historian. He has a history of coronary disease with previous coronary stenting, history of carotid stents, diabetes on insulin, on Plavix.? He underwent low anterior resection by Dr. Johnston for grade 2 moderately differentiated stage III adenocarcinoma on 07/05/2012 followed by postoperative chemotherapy and radiation.?Dr. Johnston had performed colonoscopy on 02/22/2014 and on 03/28/2015 which were reportedly unremarkable.? I performed colonoscopy on 03/29/2018 at which time he had a moderate sessile serrated adenoma adjacent to the appendiceal orifice. Patient had failed to discontinue his Plavix prior to procedure at that time. I performed colonoscopy on 12/25/2020 and he had extremely poor preparation with very poor visualization. Therefore early repeat colonoscopy with maximum prep was planned which I performed on 04/19/2021 at which time he had fair to poor colonic preparation. He underwent EGD and colonoscopy on 06/12/2022 at which time he had failed to discontinue his aspirin and Plavix appropriately prior to the procedure. There were noted to be punctate ulcer/erosions at the pylorus and these were not biopsied due to the patient being on Plavix. Colonic preparation was very poor and colon could not be evaluated. When he had followed up in the office on 06/19/2022 plan was made for EGD in several months to assess the ulcers/erosions and repeat colonoscopy with multi day prep. Patient was scheduled for colonoscopy. Of note, patient had a recent admission to this facility with presentation of dizziness during which time he underwent CT angiogram revealing severe to critical stenosis of proximal right ICA, carotid stent in the proximal left ICA, moderate to severe stenosis (60 to 70%) right vertebral artery. He was managed medically at this facility and plan was for follow-up at [facility] stroke clinic. Patient states that he has followed up with [facility] and they stated that no intervention was necessary on his blockages . For planned/scheduled colonoscopy he underwent magnesium citrate prep preceded by several days of MiraLAX. When asked if this was effective he states, I hope so. [facility] Disclaimer: The information contained in this section may have been updated after the patient was seen, as this information can be updated by other users. Medical History (Updated 08/27/23 @ 07:08 by Jake Herrmann MD) History of colon cancer Vertigo Seizure disorder Diabetes mellitus, type 2 Hypertension Hyperlipidemia Colon cancer Internal carotid artery stent present [facility] History History of esophagogastroduodenoscopy (EGD) History of appendectomy History of colon resection H/O heart artery stent History of colonoscopy Family History Other Family history of arthritis Family history of myocardial infarction Social History (Updated 08/27/23 @ 06:57 by Cristine Crouch RN) Smoking Status: Former smoker tobacco type: cigarettes second hand exposure: No alcohol intake: never substance use type: denies use current occupational status: retired Travel in the last 8 weeks: None household members: spouse and family housing: house caffeine: No Review of Systems Review of Systems Review of systems:: pertinent systems reviewed and negative unless documented below Meds Home Medications and Allergies Home Medications Medication Instructions Recorded Confirmed Type aspirin 81 mg tablet,delayed 81 mg PO DAILY Heart disease 03/07/18 08/24/23 History release (Adult Low Dose Aspirin) krill oil 500 mg capsule 1 tab PO DAILY Cholesterol 03/07/18 08/24/23 History metoprolol succinate 25 mg 25 mg PO DAILY High Blood Pressure 03/07/18 08/24/23 History tablet,extended release 24 hr niacin 500 mg capsule,extended 1,000 mg PO HS Supplement 03/07/18 08/24/23 History release ascorbic acid (vitamin C) 500 mg 500 mg PO DAILY Supplement 12/06/20 08/24/23 History capsule cinnamon bark 500 mg capsule 1,000 mg PO DAILY Supplement 12/06/20 08/24/23 History (Cinnamon) furosemide 40 mg tablet 40 mg PO BIDL Fluid 12/06/20 08/24/23 History multivit with min-folic 1 tab PO DAILY Supplement 12/06/20 08/24/23 History acid-lutein 400 mcg-250 mcg chewable tablet (Centrum Silver) potassium chloride 20 mEq 40 meq PO DAILY Supplement 12/06/20 08/24/23 History tablet,extended release(part/cryst) cholecalciferol (vitamin D3) 25 25 mcg PO DAILY Supplement 07/10/23 08/24/23 History mcg (1,000 unit) tablet gabapentin 800 mg tablet 800 mg PO TID NERVE PAIN 07/10/23 08/24/23 History insulin glargine 100 15 unit SQ DAILY Diabetes 07/10/23 08/27/23 History unit-lixisenatide 33 mcg/mL subcutaneous pen (Soliqua 100/33) naproxen sodium 220 mg tablet 220 mg PO Q12HP PRN Mild Pain 07/10/23 08/24/23 History (Scale Score 1-4) pravastatin 40 mg tablet 40 mg PO HS Cholesterol 07/10/23 08/24/23 History clopidogrel 75 mg tablet 75 mg PO DAILY Blood Thinner 30 07/11/23 08/24/23 Rx days #30 tabs scopolamine base 1 mg over 3 days 1 patch transdermal Q3D PRN nausea 07/11/23 08/24/23 Rx transdermal patch and vomiting #10 ea New Prescriptions to Start Prescriptions: Allergies Allergy/AdvReac Type Severity Reaction Status Date / Time No Known Allergies Allergy Verified 08/27/23 06:42 Exam Data for Last 24 hours I & O for Last 24 hours: Intake & Output 08/24/23 08/25/23 08/26/23 08/27/23 11:59 11:59 11:59 11:59 Weight 219 lb Constitutional Constitutional: no acute distress *Routine HEENT Exam Head: Present normocephalic Eye: Present EOMI and PERRL ENT: Present mucous membranes moist *Routine Neck Exam Neck: Present supple; Absent lymphadenopathy *Routine Respiratory Exam Respiratory: Present CTA bilaterally *Routine Cardiovascular Exam Cardiovascular: Present RRR *Routine Abdominal Exam Abdominal: Present soft and normoactive bowel sounds; Absent tenderness *Routine Rectal Exam Rectal:: deferred *Routine Genitalia Exam Genitalia:: deferred *Routine Extremities Exam Extremities: Absent cyanosis, clubbing or edema *Routine Skin Exam Skin: Present warm; Absent rash *Routine Neurological Exam Neurological: Present alert and oriented X3 Assessment and Plan *Assessment and plan (1) History of colon cancer: Status: Acute Category: Medical Code(s): Z85.038 - Personal history of other malignant neoplasm of large intestine Plan Plan to proceed with colonoscopy
[2023-08-27] MEDS: LACTATED RINGERS 1000ML 1,000 ML 25 ML IV (06:58)
[2023-08-27 07:01] LABS: POC Glucose,Bedside 121 (70-110)
--- NOTE | 2023-08-27 07:25 | EXP.ANES.CKL ---
[facility] Disclaimer: The information contained in this section may have been updated after the patient was seen, as this information can be updated by other users. Medical History (Updated 08/27/23 @ 07:08 by Jake Herrmann MD) History of colon cancer Vertigo Seizure disorder Diabetes mellitus, type 2 Hypertension Hyperlipidemia Colon cancer Internal carotid artery stent present [facility] History History of esophagogastroduodenoscopy (EGD) History of appendectomy History of colon resection H/O heart artery stent History of colonoscopy Family History Other Family history of arthritis Family history of myocardial infarction Social History (Updated 08/27/23 @ 06:57 by Cristine Crouch, PAT) Smoking Status: Former smoker tobacco type: cigarettes second hand exposure: No alcohol intake: never substance use type: denies use current occupational status: retired Travel in the last 8 weeks: None household members: spouse and family housing: house caffeine: No [facility] Anesthesia Checklist Patient Identification Patient Identification: Arm Band, Family and Verbal (Name & ) Structural Data Admitted From: Home Planned Operative Procedure/s: Colonoscopy Consent for Planned Operative Procedure(s) Verified: Yes Verified Documents: Surgical Consent and History and Physical NPO Status Verified Time NPO: 03:00 Chart Verification Results Verified: CBC, BMP and ECG Additional verifications Fingerstick Blood Glucose: 121 Patient : No Anesthesia Reactions: No Cardiovascular Assessment Heart Sounds: S1 & S2 Pulse Rhythm: Irregular Peripheral Edema: No Airway Assessment Mallampati Score:: Class I C-Spine Mobility Assessed: Yes (FROM) TMJ Mobility Assessed: Yes Dentition: Edentulous Neurological Assessment Level of Consciousness: Awake, Alert, Appropriate and Follows Commands Hx Seizures: No Numbness or tingling in extremities: No Anesthesia Plan Anesthesia Risk discussed: Yes Anesthesia Plan: Verified ASA Class: III Anesthesia Type: MAC
--- NOTE | 2023-08-27 08:12 | HMH.SCOPE ---
Procedure: Date: 08/27/23 Patient Date of :: 1945 Procedure Performed:: Colonoscopy with polypectomy Indications:: . Patient is a 78-year-old male with history of colon cancer who presents for colonoscopy. Primary care provider is Santiago Boss MD. He has been somewhat of a poor historian. He has a history of coronary disease with previous coronary stenting, history of carotid stents, diabetes on insulin, on Plavix.? He underwent low anterior resection by Dr. Johnston for grade 2 moderately differentiated stage III adenocarcinoma on 07/05/2012 followed by postoperative chemotherapy and radiation.?Dr. Johnston had performed colonoscopy on 02/22/2014 and on 03/28/2015 which were reportedly unremarkable.? I performed colonoscopy on 03/29/2018 at which time he had a moderate sessile serrated adenoma adjacent to the appendiceal orifice. Patient had failed to discontinue his Plavix prior to procedure at that time. I performed colonoscopy on 12/25/2020 and he had extremely poor preparation with very poor visualization. Therefore early repeat colonoscopy with maximum prep was planned which I performed on 04/19/2021 at which time he had fair to poor colonic preparation. He underwent EGD and colonoscopy on 06/12/2022 at which time he had failed to discontinue his aspirin and Plavix appropriately prior to the procedure. There were noted to be punctate ulcer/erosions at the pylorus and these were not biopsied due to the patient being on Plavix. Colonic preparation was very poor and colon could not be evaluated. When he had followed up in the office on 06/19/2022 plan was made for EGD in several months to assess the ulcers/erosions and repeat colonoscopy with multi day prep. Patient was scheduled for colonoscopy. Of note, patient had a recent admission to this facility with presentation of dizziness during which time he underwent CT angiogram revealing severe to critical stenosis of proximal right ICA, carotid stent in the proximal left ICA, moderate to severe stenosis (60 to 70%) right vertebral artery. He was managed medically at this facility and plan was for follow-up at [facility] stroke clinic. Patient states that he has followed up with [facility] and they stated that no intervention was necessary on his blockages . For planned/scheduled colonoscopy he underwent magnesium citrate prep preceded by several days of MiraLAX which he found rather palatable. When asked if this was effective he states, I hope so. . Performing Provider:: Jake Herrmann MD Referring Provider:: Santiago Boss MD Sedation:: MAC sedation Procedure:: Patient history was obtained and appropriate physical examination was performed. Patient's medications and allergies were reviewed. Informed consent was obtained after explaining the benefits, alternatives, and risks of the procedure including, but not limited to, bleeding, perforation, missed lesions, and adverse reaction to anesthesia medications. Patient was transported to endoscopy procedure room. Patient was connected to monitoring devices. Throughout the procedure the patient's blood pressure, pulse, and oxygen saturations were monitored continuously. Patient identification and planned procedure were verified by the staff. Patient was positioned in lateral decubitus position. Digital anorectal exam was performed. Variable stiffness Olympus colonoscope was inserted and advanced under direct visualization to the cecum. Adequacy of the colonic preparation was noted. The colonoscope was unable to be advanced into the terminal ileum. The colonoscope was then slowly withdrawn while carefully examining the color, texture, anatomy, and integrity of the mucosoa circumferentially. Retroflexion was unable to be safely performed. Colonoscope was then withdrawn. He had some degree of diverticulosis. Colonic preparation was good. In the proximal transverse colon there was a small adenomatous appearing polyp removed with cold snare. Colonoscope was advanced to the cecum. There was a small adenomatous appearing polyp in the cecum removed with biopsy forceps. As the colonoscope was withdrawn and the distal transverse colon there was somewhat of a ridge polyp removed with cold snare. . Findings:: Polyps as noted above Diverticulosis Anastomosis at approximately 17 cm from the anal verge Recommendations:: Repeat colonoscopy pending pathology. Given polyps, history of colon cancer, likely 3 years Complications:: None immediately apparent Estimated blood obtained (mL): 2 Colonoscopy Component Colonoscopy Component Was a colonoscopy performed during today's procedure?: Yes Recommended follow up colonoscopy of at least 10 years?: No If no, follow up colonoscopy recommended in ___ years?: See above Reason for not recommending >/= 10 yr follow-up interval?: 3
--- NOTE | 2023-08-27 08:19 | P.PNANES_ITS ---
[facility] Anesthesia Record Part I Anesthesia Record I Intake, IV Amount: 700 Hydration: Adequate Estimated blood loss (mL): 1 Urine output (mL): 0 Blood Products used (#): none Blood Pressure: 147/67 SaO2: 92 Pulse Rate: 80 Airway Patency: Patent Respiratory Rate: 12 Temperature: 97.0 F Patient is:: Drowsy and Stable Stable to PACU at:: 08:21
== END 2023-08-27 08:45 | disposition home or self-care (01) ==
PROVIDERS: PCP Internal Medicine Adolescent Medicine; Visit Provider Surgery
PROC: 0DJD8ZZ Inspection of Lower Intestinal Tract, Via Natural or Artificial Opening Endoscopic (ICD-10-PCS; CPT 45380; principal; 2023-08-27 07:30)
DX: Z12.11 Encounter for screening for malignant neoplasm of colon (principal); E11.9 Type 2 diabetes mellitus without complications; Z85.038 Personal history of other malignant neoplasm of large intestine; Z98.0 Intestinal bypass and anastomosis status; K57.92 Diverticulitis of intestine, part unspecified, without perforation or abscess without bleeding; D12.0 Benign neoplasm of cecum
CPT/HCPCS: 45380; 45385; 82962; 88305

== ENCOUNTER 2023-09-28 10:26 | Outpatient (CLI) | payer MEDICARE, SELFPAY ==
--- NOTE | 2023-09-28 10:31 | XR_ITS ---
FINAL REPORT CLINICAL HISTORY: OSTEOMYELITIS COMPARISON: None FINDINGS: Three views of the left foot show no evidence of acute displaced fracture or dislocation of the visualized bony architecture. There are mild diffuse degenerative changes. There is bony destruction in the tuft of the first distal phalanx compatible with osteomyelitis. No gas is seen in the soft tissues. IMPRESSION: Destructive changes involving the tuft of the first distal phalanx, presumably osteomyelitis. Reviewed, Interpreted and Dictated by Tye Agustin MD Transcribed by Yun Nunes Authenticated and [facility]
== END 2023-09-28 23:59 | disposition home or self-care (01) ==
LOC: RAD 10:27
PROVIDERS: PCP Internal Medicine Adolescent Medicine; Visit Provider Family Medicine
DX: M79.672 Pain in left foot (principal); M86.9 Osteomyelitis, unspecified
CPT/HCPCS: 73630

== ENCOUNTER 2023-12-14 11:13 | Outpatient (CLI) | payer MEDICARE, SELFPAY ==
--- NOTE | 2023-12-14 11:30 | XR_ITS ---
FINAL REPORT CLINICAL HISTORY: right foot ulcer on the bottom of his foot COMPARISON: None FINDINGS: AP, oblique and lateral views of the right foot were obtained. There is no prior exam for comparison. There is no acute fracture or dislocation. Multijoint degenerative change is present. No beni bone destruction is identified. Soft tissues are normal. IMPRESSION: No acute osseous abnormality of the right foot. Multijoint degenerative change. Reviewed, Interpreted and Dictated by Jing Ann MD Transcribed by Margarita Whittington Authenticated and [facility]
--- NOTE | 2023-12-14 11:30 | XR_ITS ---
FINAL REPORT CLINICAL HISTORY: left foot ulcer COMPARISON: 09/28/2023 FINDINGS: AP, oblique and lateral views of the left foot were obtained. There is no acute fracture or dislocation. The distal tuft of the great toe is stable when compared to the prior exam. Multijoint degenerative changes present. No beni bone destruction is seen. Soft tissues are normal. IMPRESSION: No acute osseous abnormality of the right foot. Multijoint degenerative change is present. Reviewed, Interpreted and Dictated by Jing Ann MD Transcribed by Margarita Whittington Authenticated and [facility]
[2023-12-14 11:45] LABS: Hemoglobin A1C 6.2 % (4.0-6.0)
[2023-12-14 12:05] LABS: Basophils # 0.1 K/mm3 (0-0.2); Eosinophils # 0.4 K/mm3 (0.0-0.4); Eosinophils % 5.4 % (0.1-12.0); Hematocrit 40.3 % (42.0-52.0); Hemoglobin 13.2 g/dL (14.1-18.0); Lymphocytes # 2.7 K/mm3 (0.7-4.5); Lymphocytes % 33.6 % (10-50); Mean Corpuscular HGB Conc 32.8 g/dL (31.8-35.4); Mean Corpuscular Hemoglobin 32.3 pg (27.0-31.2); Mean Corpuscular Volume 98.2 fl (80-94); Mean Platelet Volume 7.9 fl (7.4-10.4); Monocytes # 0.6 K/mm3 (0.1-1.0); Monocytes % 7.8 % (1.7-9.3); Neutrophils # 4.1 K/mm3 (1.8-7.8); Neutrophils % 52.2 % (37.0-80.0); Platelet Count 193 K/mm3 (142-424); Red Blood Count 4.11 M/mm3 (4.60-6.20); Red Cell Distribution Width 16.5 % (11.5-17.5); White Blood Count 7.9 K/mm3 (4.8-10.8)
[2023-12-14 12:15] LABS: Alanine Aminotransferase 26 U/L (12-78); Albumin Level 3.8 g/dl (3.5-5.0); Albumin/Globulin Ratio 1.4 (1.1-1.8); Alkaline Phosphatase 64 U/L (38-126); Anion Gap 11.8 mEq/L (5-15); Aspartate Amino Transferase 38 U/L (17-59); Bilirubin,Total 0.5 mg/dl (0.2-1.3); Blood Urea Nitrogen 36 mg/dl (9-20); Calcium 9.2 mg/dl (8.4-10.2); Carbon Dioxide 25 mmol/L (22.0-30.0); Chloride 108 mmol/L (98-107); Estimated Glomerular Filt Rate 65 ml/min (>60); GFR (African American) 78 ML/MIN (>60); Globulin 2.7 g/dL (1.3-3.2); Glucose 206 mg/dl (74-100); Potassium 4.8 mmoL/L (3.5-5.1); Sodium 140 mmol/L (136-145); Total Protein,Serum 6.5 g/dl (6.3-8.2)
[2023-12-14 12:20] LABS: C-Reactive Protein 6.4 mg/L (0-4)
[2023-12-14 12:32] LABS: Erythrocyte Sedimentation Rate 27 mm/hr (0-20)
== END 2023-12-14 23:59 | disposition home or self-care (01) ==
LOC: LAB 11:16
PROVIDERS: PCP Internal Medicine Adolescent Medicine; Visit Provider Nurse Practitioner
DX: L89.899 Pressure ulcer of other site, unspecified stage (principal); E11.9 Type 2 diabetes mellitus without complications; L97.509 Non-pressure chronic ulcer of other part of unspecified foot with unspecified severity; E11.621 Type 2 diabetes mellitus with foot ulcer; E11.69 Type 2 diabetes mellitus with other specified complication; Z79.4 Long term (current) use of insulin; L97.519 Non-pressure chronic ulcer of other part of right foot with unspecified severity; L97.529 Non-pressure chronic ulcer of other part of left foot with unspecified severity
CPT/HCPCS: 36415; 73630; 80053; 83036; 85025; 85651; 86140

== ENCOUNTER 2023-12-15 10:30 | Outpatient (CLI) | payer MEDICARE, SELFPAY | END 2023-12-15 23:59 | disposition home or self-care (01) | LOC: LAB.DROPOF 12-16 10:30 | PROVIDERS: PCP Nurse Practitioner; Visit Provider Nurse Practitioner | DX: E11.621 Type 2 diabetes mellitus with foot ulcer (principal); L97.509 Non-pressure chronic ulcer of other part of unspecified foot with unspecified severity | CPT/HCPCS: 87070; 87077; 87186; 87205 ==

== ENCOUNTER 2023-12-29 10:21 | Outpatient (CLI) | payer MEDICARE, SELFPAY ==
--- NOTE | 2023-12-29 10:27 | XR_ITS ---
FINAL REPORT CLINICAL HISTORY: Foot Pain COMPARISON: 12/14/2023 FINDINGS: RIGHT FOOT 3 views of the right foot were obtained. There is no acute fracture or dislocation. Small osteophytes are noted. 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 There is a well-corticated ossific density inferior to the lateral malleolus which may be due to sequela from trauma. An accessory navicular is present. Soft tissues are unremarkable. IMPRESSION: Degenerative/chronic changes without acute bony abnormality. Reviewed, Interpreted and Dictated by Dimas Riggs MD Transcribed by Yun Nunes Authenticated and . [facility]
--- NOTE | 2023-12-29 10:27 | XR_ITS ---
FINAL REPORT CLINICAL HISTORY: Foot Pain COMPARISON: 12/14/2023 FINDINGS: LEFT FOOT Three views of the left foot demonstrate no acute fracture or dislocation. There is a partial amputation appearance of the tuft of the first distal phalange. There is a moderate plantar spur. Large Reed deformity is noted. The soft tissues are unremarkable. IMPRESSION: Degenerative/chronic changes without acute bony abnormality. Reviewed, Interpreted and Dictated by Dimas Riggs MD Transcribed by Yun Nunes Authenticated and [facility]
== END 2023-12-29 23:59 | disposition home or self-care (01) ==
LOC: RAD 10:23
PROVIDERS: PCP Internal Medicine Adolescent Medicine; Visit Provider Nurse Practitioner
DX: M79.671 Pain in right foot (principal); M79.672 Pain in left foot; E08.621 Diabetes mellitus due to underlying condition with foot ulcer; L97.512 Non-pressure chronic ulcer of other part of right foot with fat layer exposed; B95.7 Other staphylococcus as the cause of diseases classified elsewhere; B96.89 Other specified bacterial agents as the cause of diseases classified elsewhere; Z79.4 Long term (current) use of insulin
CPT/HCPCS: 73630; 87070; 87077; 87186; 87205

== ENCOUNTER 2023-12-31 14:22 | Outpatient (CLI) | payer MEDICARE, SELFPAY ==
--- NOTE | 2023-12-31 14:32 | US_ITS ---
FINAL REPORT CLINICAL HISTORY: Decreased Pedal Pulses,DM,SMOKER,CAD,WOUND BALL OF RIGHT FOOT,WOUND RT GREAT TOE,EX SMOKER COMPARISON: None FINDINGS: ANKLE-BRACHIAL PRESSURE INDICES Pressure indices are as follows: RIGHT LOWER EXTREMITY: Ankle-brachial pressure index: 0.60 Comments: Moderate to severe disease LEFT LOWER EXTREMITY: Ankle-brachial pressure index: 0.54 Comments: Severe disease IMPRESSION: Monophasic waveforms throughout with marked arterial occlusive disease bilaterally. Reviewed, Interpreted and Dictated by Dimas Riggs MD Transcribed by Yun Nunes Authenticated and [facility]
== END 2023-12-31 23:59 | disposition home or self-care (01) ==
LOC: RT 14:26
PROVIDERS: PCP Nurse Practitioner; Visit Provider Nurse Practitioner
DX: R09.89 Other specified symptoms and signs involving the circulatory and respiratory systems (principal)
CPT/HCPCS: 93923

== ENCOUNTER 2024-01-04 10:50 | Emergency (ER) | payer MEDICARE, SELFPAY ==
[2024-01-04] VITALS (11 sets, daily range): BP systolic 110–134; BP diastolic 70–93; PULSE 79–122; RESP 19–26; TEMP 36.5–36.7; O2SAT 91–97; BMI 30.4
--- NOTE | 2024-01-04 11:03 | ECG_ITS ---
APPROVED REPORT Exam: Resting ECG HR:125 bpm ECG Measurements Heart Rate 125 AXES QRSd 163 QRS 238 QT 359 T 99 QTc 433 Conclusion ATRIAL FIBRILLATION WITH RAPID VENTRICULAR RESPONSE RIGHT AXIS DEVIATION [QRS AXIS > 100] INTRAVENTRICULAR CONDUCTION DELAY [130+ ms QRS DURATION] ABNORMAL ECG INTERPRETATION BASED ON A DEFAULT AGE OF 39 YEARS Electronically signed by : YAN GARCIA, 01/04/2024 15:28:39
--- NOTE | 2024-01-04 11:13 | CT_ITS ---
FINAL REPORT CLINICAL HISTORY: falls, general weakness, tachy, intractable N/V COMPARISON: None FINDINGS: Axial CT images of the thoracic spine were obtained without contrast. Sagittal and coronal reformatted images were also obtained. This study was performed with techniques to keep radiation doses as low as reasonably achievable (ALARA). Individualized dose reduction techniques using automated exposure control or adjustment of mA and/or kV according to the patient's size were employed. There is no evidence of fracture. There is severe degenerative change of the thoracic spine with multilevel fusions that may represent DISH. The vertebral alignment is normal. There is no evidence of significant canal stenosis. No paraspinous soft tissue abnormality is identified. IMPRESSION: No fracture or acute bony abnormality. 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 Reviewed, Interpreted and Dictated by Jake Hebert III, MD Transcribed by Margarita Whittington Authenticated and [facility]
--- NOTE | 2024-01-04 11:13 | CT_ITS ---
FINAL REPORT CLINICAL HISTORY: falls, general weakness, tachy, intractable N/V COMPARISON: None FINDINGS: Axial CT images of the cervical spine were obtained without contrast. Sagittal and coronal reformatted images were also obtained. This study was performed with techniques to keep radiation doses as low as reasonably achievable (ALARA). Individualized dose reduction techniques using automated exposure control or adjustment of mA and/or kV according to the patient's size were employed. There is no evidence of fracture or dislocation. 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 There is multilevel degenerative change in the cervical spine, with multilevel neural foraminal narrowing. There is mild central canal stenosis present at the C5-6 level. No paraspinous soft tissue abnormality is seen. Limited images of the upper thorax are unremarkable. IMPRESSION: No fracture or acute bony abnormality identified. Degenerative change as described above. Reviewed, Interpreted and Dictated by Jake Hebert III, MD Transcribed by Margarita Whittington Authenticated and [facility]
--- NOTE | 2024-01-04 11:13 | CT_ITS ---
FINAL REPORT CLINICAL HISTORY: falls, general weakness, tachy, intractable N/V COMPARISON: 07/09/2023 FINDINGS: Axial images of the head were obtained without contrast. Coronal reformatted images were also obtained. This study was performed with techniques to keep radiation doses as low as reasonably achievable (ALARA). Individualized dose reduction techniques using automated exposure control or adjustment of mA and/or kV according to the patient's size were employed. There is generalized age-appropriate atrophy. Periventricular low-attenuation areas are seen consistent with moderate chronic ischemic changes. There is no evidence of intracranial hemorrhage or mass. There is no evidence of acute infarct. There is no evidence of shift of the midline structures. No skull abnormality is seen on the bone window images. IMPRESSION: Atrophy and moderate periventricular chronic ischemic changes. No acute intracranial abnormality identified. Reviewed, Interpreted and Dictated by Jake Hebert III, MD Transcribed by Irene Marx Authenticated and [facility]
--- NOTE | 2024-01-04 11:13 | CT_ITS ---
FINAL REPORT TECHNIQUE: Axial imaging of the lumbar spine was obtained without contrast. Sagittal and coronal reformatted images were also obtained and reviewed. This study was performed with techniques to keep radiation doses as low as reasonably achievable (ALARA). Individualized dose reduction techniques using automated exposure control or adjustment of mA and/or kV according to the patient's size were employed. CLINICAL HISTORY: falls, general weakness, tachy, intractable N/V COMPARISON: None FINDINGS: There is no fracture. The vertebral alignment is normal. Moderate and severe degenerative change of the lumbar spine is present..There is no evidence of significant central canal stenosis. IMPRESSION: Multilevel moderate and severe degenerative change without acute bony abnormality. Reviewed, Interpreted and Dictated by Jake Hebert III, MD Transcribed by Margarita Whittington Authenticated and [facility]
--- NOTE | 2024-01-04 11:20 | HMH.EDGENADL ---
Discharge Plan Disposition Patient Disposition: Xfer Short-Term Hosp Condition: Critical Prescriptions Prescriptions: No Action aspirin [Adult Low Dose Aspirin] 81 mg tablet,delayed release (DR/EC) 81 mg PO DAILY metoprolol succinate 25 mg tablet extended release 24 hr 25 mg PO DAILY niacin 500 mg capsule, extended release 1,000 mg PO HS potassium chloride 20 mEq tablet,ER particles/crystals 40 meq PO DAILY furosemide 40 mg tablet 40 mg PO BIDL cinnamon bark [Cinnamon] 500 mg capsule 1,000 mg PO DAILY ascorbic acid (vitamin C) 500 mg capsule 500 mg PO DAILY Centrum Silver 400-250 mcg tablet,chewable 1 tab PO DAILY enalapril maleate 5 mg tablet 5 mg PO BID meclizine 12.5 mg tablet 12.5 mg PO TIDP PRN (Reason: Vertigo) Patient Comments: TAKE 1 TABLET BY MOUTH THREE TIMES DAILY NEEDED FOR 7 DAYS clopidogrel 75 mg tablet 75 mg PO DAILY mupirocin 2 % ointment 1 applic topical BID Santyl 250 unit/gram ointment 1 applic topical DAILY Rx Instructions: Wound size 1.3cm x 2.5cm x 0.1cm= 17 grams (give qty#1-30 gram tube) apply 1.7cm per application x 30 days. gabapentin 800 mg tablet 800 mg PO TID cholecalciferol (vitamin D3) 25 mcg (1,000 unit) Tablet 25 mcg PO DAILY Soliqua 100/33 100 unit-33 mcg/mL Insulin Pen 15 unit SQ DAILY Referrals Follow up/Referrals: Santiago Guo MD [Primary Care Provider] - See instructions Clinical Impressions Clinical Impression: Acute liver failure, JACKIE (acute kidney injury), Hyperphosphatemia, Atrial fibrillation with RVR, Elevated troponin, Shock, Acute decompensated heart failure Instructions Patient Instructions: DI for Diarrhea and Traveler's Diarrhea -- Adult, DI for Diarrhea and Traveler's Diarrhea -- Child, DI for Nausea -- Adult, DI for Nausea -- Child Print Language Print Language: Nepali Discharge ED Provider: Jessica Wilcox General Adult HPI General Chief complaint: Nausea/Vomiting/Diarrhea Stated complaint: vomiting low bp Time Seen by Provider: 01/04/24 11:00 Mode of Arrival: Wheelchair Source of Information: Patient Limitations: No Limitations Description of Symptoms (Recalled from ER Triage Doc. by RN): pt sent to ED from dr guo office for further eval. pt reports vomitting, nausea, poor oral intake, dizziness. pt reports symptoms ongoing since wednesday. History of Present Illness HPI narrative: This patient is a 78-year-old male with a history of colon cancer, vertigo, insulin-dependent type 2 diabetes, hypertension, hyperlipidemia, CAD, PAD, and foot wounds presenting to the emergency department for evaluation with concern for intractable nausea and vomiting for 4 to 5 days, inability to tolerate oral intake, dizziness, and falls. He states that he is not having any pain, he just feels extremely dizzy, weak, and cannot stand. He states it is hard to describe whether it is the room spinning or lightheadedness. No headache, visual disturbance, new numbness or tingling. No chest pain, shortness of breath. No significant abdominal pain. With the fall, he denies hitting his head or losing consciousness. He denies any associated injury. His noted that he had fallen out of the bathtub a couple nights ago. He is evaluated by his PCP today who sent him into the ED for further evaluation and management with concern for all of the symptoms. Of note, patient states that he has not been using his insulin since he has not been eating. He is on aspirin but no anticoagulation according to him. Related Data Home Medications ?Medication ?Instructions ?Recorded ?Confirmed aspirin 81 mg tablet,delayed 81 mg PO DAILY 03/07/18 01/04/24 release (Adult Low Dose Aspirin) metoprolol succinate 25 mg 25 mg PO DAILY 03/07/18 01/04/24 tablet,extended release 24 hr niacin 500 mg capsule,extended 1,000 mg PO HS 03/07/18 01/04/24 release ascorbic acid (vitamin C) 500 mg 500 mg PO DAILY 12/06/20 01/04/24 capsule cinnamon bark 500 mg capsule 1,000 mg PO DAILY 12/06/20 01/04/24 (Cinnamon) furosemide 40 mg tablet 40 mg PO BIDL 12/06/20 01/04/24 multivit with min-folic 1 tab PO DAILY 12/06/20 01/04/24 acid-lutein 400 mcg-250 mcg chewable tablet (Centrum Silver) potassium chloride 20 mEq 40 meq PO DAILY 12/06/20 01/04/24 tablet,extended release(part/cryst) cholecalciferol (vitamin D3) 25 25 mcg PO DAILY 07/10/23 01/04/24 mcg (1,000 unit) tablet gabapentin 800 mg tablet 800 mg PO TID 07/10/23 01/04/24 insulin glargine 100 15 unit SQ DAILY 07/10/23 01/04/24 unit-lixisenatide 33 mcg/mL subcutaneous pen (Soliqua 100/33) clopidogrel 75 mg tablet 75 mg PO DAILY 01/04/24 01/04/24 collagenase clostridium histo. 250 1 applic topical DAILY 01/04/24 01/04/24 unit/gram topical ointment (Santyl) enalapril maleate 5 mg tablet 5 mg PO BID 01/04/24 01/04/24 meclizine 12.5 mg tablet 12.5 mg PO TIDP PRN Vertigo 01/04/24 01/04/24 mupirocin 2 % topical ointment 1 applic topical BID 01/04/24 01/04/24 Allergies Allergy/AdvReac Type Severity Reaction Status Date / Time No Known Allergies Allergy Verified 12/29/23 09:02 [facility] Disclaimer: The information contained in this section may have been updated after the patient was seen, as this information can be updated by other users. Medical History History of colon cancer Vertigo Seizure disorder Diabetes mellitus, type 2 Hypertension Hyperlipidemia Colon cancer Internal carotid artery stent present [facility] Surgical History History of esophagogastroduodenoscopy (EGD) History of appendectomy History of colon resection H/O heart artery stent History of colonoscopy Family History Other Family history of arthritis Family history of myocardial infarction Social History Smoking Status: Never smoker second hand exposure: No alcohol intake: never substance use type: denies use current occupational status: retired Travel in the last 8 weeks: None household members: spouse and family housing: house caffeine: No ROS Obtained: Yes All systems reviewed & no additional complaints except as documented Physical Exam General General appearance: alert, in no apparent distress and obese Comment: Mildly ill-appearing, pale Head Head exam: atraumatic and normocephalic Eye Eye exam: Present normal appearance, PERRL and EOMI ENT ENT exam: Present mucous membranes dry and normal external ear exam Neck Neck exam: Present normal inspection, full ROM and trachea midline; Absent tenderness Chest Chest inspection: Present normal inspection and symmetric chest wall rise; Absent tenderness Respiratory Respiratory exam: Present normal lung sounds bilaterally; Absent respiratory distress, wheezes, stridor or accessory muscle use Cardiovascular Cardiovascular exam: Present tachycardia and irregular rhythm Abdominal Exam Abdominal exam: Present soft; Absent distention, tenderness, guarding, rebound or rigidity Extremities Exam Extremities exam: Present full ROM and normal capillary refill; Absent tenderness or edema Back Exam Back exam: Present normal inspection and full ROM; Absent tenderness Neurological Exam Neurological exam: Present alert, oriented X3 and CN II-XII intact; Absent normal gait (Arrives via wheelchair, unable to walk) or motor sensory deficit Psychiatric Psychiatric exam: Present normal affect and normal mood Skin Skin exam: Present pallor Medical Decision Making Medical Records Medical records reviewed: Yes I reviewed the patient's medical records. Abraham Inquiry Pt receiving controlled substance: No Vital Signs: 01/04/24 10:57 01/04/24 11:00 01/04/24 11:05 Temperature Temperature Source Pulse Rate 108 H 119 H Pulse Rate [Left Radial] Respiratory Rate Blood Pressure 121/73 122/93 H Blood Pressure [Right Arm] Blood Pressure Mean 100 Blood Pressure Mean [Right Arm] 02 Sat by Pulse Oximetry 91 L 96 Oxygen Delivery Method 01/04/24 11:12 01/04/24 11:28 01/04/24 11:56 Temperature 97.7 F Temperature Source Oral Pulse Rate 79 122 H Pulse Rate [Left Radial] 122 H Respiratory Rate 19 19 Blood Pressure 121/70 113/81 Blood Pressure [Right Arm] 122/93 H Blood Pressure Mean Blood Pressure Mean [Right Arm] 102 02 Sat by Pulse Oximetry 96 96 97 Oxygen Delivery Method Room Air Room Air Room Air 01/04/24 11:59 Temperature Temperature Source Pulse Rate 118 H Pulse Rate [Left Radial] Respiratory Rate 24 Blood Pressure 126/83 Blood Pressure [Right Arm] Blood Pressure Mean Blood Pressure Mean [Right Arm] 02 Sat by Pulse Oximetry 97 Oxygen Delivery Method Room Air Lab Data Lab results reviewed: Yes I reviewed the patient's lab results. Lab Results 01/04/24 11:02: WBC 15.2 H, RBC 4.25 L, Hgb 14.0 L, Hct 43.7, MCV 102.9 H, MCH 33.0 H, MCHC 32.1, RDW 16.4, Plt Count 199, MPV 9.0, Neut % (Auto) 80.4 H, Lymph % (Auto) 8.5 L, [place] % (Auto) 10.3 H, Eos % (Auto) 0.1, Baso % (Auto) 0.8, Neut # (Auto) 12.2 H, Lymph # (Auto) 1.3, [place] # (Auto) 1.6 H, Eos # (Auto) 0.0, Baso # (Auto) 0.1, Total Counted 100, Neutrophils % (Manual) 79 H, Lymphocytes % (Manual) 13, Monocytes % (Manual) 8, Nucleated RBCs 2, Platelet Estimate Normal, Macrocytosis 1+, PT 17.1 H, INR 1.60 H, APTT 26.1, Sodium 132 L, Potassium 5.1, Chloride 99, Carbon Dioxide 13 L, Anion Gap 25.1 H, BUN 82 H, Creatinine 2.40 H, Estimated Creat Clear 36, Estimated GFR 26 L, Est GFR ( Amer) 32 L, Glucose 168 H, Calcium 8.4, Phosphorus 8.3 H, Magnesium 2.4 H, Total Bilirubin 1.8 H, AST 6387 H*, ALT 3322 H*, Alkaline Phosphatase 89, Troponin I 6.95 H, NT-Pro-B Natriuret Pep 64334 H, Total Protein 7.1, Albumin 4.2, Globulin 2.9, Albumin/Globulin Ratio 1.4, Lipase 228, Procalcitonin 0.313, TSH 0.37 L, Thyroxine (T4) 5.0 L 01/04/24 11:18: VBG pH 7.25 L, VBG pCO2 25.0 L, VBG pO2 53.6 H, VBG HCO3 10.8 L, VBG Total CO2 11.6 L, VBG O2 Saturation 82.6 H, VBG Base Excess -16.4 L, VBG Lactic Acid 8.3 H 01/04/24 11:02 01/04/24 11:02 Orders (Tests/Meds): ED MEDICATIONS Generic Name Dose Route Start Last Admin Trade Name Freq PRN Reason Stop Dose Admin Cefepime HCl 2 gm/ Sodium 100 mls @ 200 mls/hr 01/04/24 14:18 Chloride IV 01/04/24 14:47 ONCE ONE Vancomycin/PEG/NADA/Lysine/Water 1.75 gm in 350 mls @ 175 mls/hr 01/04/24 14:30 Vancomycin 1.75gm/350ml (Peg) Premix IV 01/04/24 16:29 ONCE ONE Miscellaneous 1 each 01/04/24 14:30 Vancomycin Consult Request NOTAPPLIC 02/03/24 14:29 CONSULT [facility] Discontinued Medications Generic Name Dose Route Start Last Admin Trade Name Freq PRN Reason Stop Dose Admin Lactated Ringer's 1,000 mls @ 999 mls/hr 01/04/24 11:29 01/04/24 11:30 Lactated Ringer's 1000 Ml Bag IV 01/04/24 12:29 999 mls/hr .Q1H1M ONE Administration Piperacillin Sod/Tazobactam 50 mls @ 100 mls/hr 01/04/24 14:17 Sod 3.375 gm/ Sodium Chloride IV 01/04/24 14:46 ONCE ONE Meclizine HCl 25 mg 01/04/24 11:16 01/04/24 11:30 Meclizine 25mg Tablet PO 01/04/24 11:17 25 mg ONCE ONE Administration Perflutren Lipid Microsphere 2 mg 01/04/24 13:41 01/04/24 13:42 [facility] Echo Contrast 2ml Inj IV 01/04/24 13:42 2 mg ONCE ONE Administration ORDERS Category Date Time Status CT abdomen pelvis wo con Stat Cat Scan 01/04/24 11:[address] cervical spine wo con Stat Cat Scan 01/04/24 11:[address] chest wo con Stat Cat Scan 01/04/24 11:[address] head/brain wo con Stat Cat Scan 01/04/24 11:[address] lumbar spine wo con Stat Cat Scan 01/04/24 11:[address] thoracic spine wo con Stat Cat Scan 01/04/24 11:13 Completed Cardiology Consult [Consult to Cardiology] [CONS] Cons 01/04/24 12:08 Active Routine Activated Partial Thrombo Time Stat Lab 01/04/24 11:02 Completed BNP [NT Pro Brain Natriuretic Pep.] Stat Lab 01/04/24 11:02 Completed Complete Blood Count Auto Diff Stat Lab 01/04/24 11:02 Completed Comprehensive Metabolic Panel Stat Lab 01/04/24 11:02 Completed Lipase Stat Lab 01/04/24 11:02 Completed MAG [Magnesium] Stat Lab 01/04/24 11:02 Completed PHOS [Phosphorous] Stat Lab 01/04/24 11:02 Completed Procalcitonin Stat Lab 01/04/24 11:02 Completed Prothrombin Time INR Stat Lab 01/04/24 11:02 Completed T4 (Thyroxine) Stat Lab 01/04/24 11:02 Completed TSH [Thyroid Stimulating Hormone] Stat Lab 01/04/24 11:02 Completed Trop I [Troponin I] Stat Lab 01/04/24 11:02 Completed Troponin I Q3H Lab 01/04/24 14:15 Ordered Troponin I Q3H Lab 01/04/24 17:15 Ordered UA [Urinalysis and Microscopic] Stat Lab 01/04/24 11:14 Ordered Blood Culture Stat Micro 01/04/24 11:26 Received Urine Culture Stat Micro 01/04/24 11:14 Ordered VBG [Venous Blood Gas] Stat RT 01/04/24 11:18 Completed CA echo doppler complete Stat Y 01/04/24 12:28 Completed ECG Data Tracing #1: I reviewed this ECG and interpreted as documented below: Atrial fibrillation with rapid ventricular response with a ventricular rate of 125 bpm. Right axis deviation. Interventricular conduction delay noted. No acute STEMI. No significant changes from prior EKG as far as QRS morphology goes, but I do not find history of atrial fibrillation on patient's past medical records ECG initial impression date: 01/04/24 ECG initial impression time: 11:05 Tracing #2: I reviewed this ECG and interpreted as documented below: Atrial fibrillation with rapid ventricular response with a ventricular rate of [address]/T wave changes. Interventricular conduction delay ECG initial impression date: 01/04/24 ECG initial impression time: 12:24 Medical Decision Narrative: In summary, this patient is a 78-year-old male presenting to the Emergency Department for evaluation of intractable nausea and vomiting, dizziness, general weakness, and falls. He has not been taking his insulin because he is not been able to eat or drink.. Differential diagnoses considered include but are not limited to traumatic injury, stroke, pneumonia, kidney failure intra-abdominal infection, bowel obstruction, DKA, HHS, ACS, dysrhythmia. Ruling out the most morbid conditions drove assessment. It should be noted patient's history includes insulin-dependent diabetes, hypertension, hyperlipidemia, CAD which may or may not be at goal therapy. This complicates all aspects of care by increasing patient's risk for morbidity. On exam, the patient is ill-appearing, pale, tachycardic. Cardiopulmonary and abdominal exams are benign. No focal neurologic deficits noted. Workup included very broad lab evaluation to evaluate for infectious, metabolic, cardiac workup of patient's illness as well as CT scans of head to pelvis to evaluate for stroke, infectious etiology, or traumatic injury from fall. EKG was obtained which demonstrates atrial fibrillation with RVR, and patient states he is chronically on afib. He is not currently on anticoagulation. He was given a bolus of IV fluids as well as oral meclizine. Patient was found to have very impressive lab abnormalities with significantly elevated troponin, BNP greater than 17,000, significantly elevated liver enzymes (AST >6,000), JACKIE, hyperphosphatemia, hypomagnesemia, leukocytosis, lactic acidosis with a lactate of almost 9, elevated INR not on anticoagulation, mildly elevated CRP. Differential includes septic shock, cardiogenic shock, multiorgan system failure. Patient started on broad-spectrum antibiotics with vancomycin and cefepime. I do not feel comfortable administering beta-blockers or calcium channel blockers given his advanced heart failure. I also do not feel comfortable starting amiodarone with his fulminant liver failure. I called and had an interactive discussion with cardiology and stat echo ordered. On my independent review of this, I noted significant reduced EF and global hypokinesis. Cardiology had recommended cath, but the hospitalist here did not feel comfortable with admission after cath given we do not have hepatology or nephrology. Given this, initiated process of transfer with [facility]. I gave the patient 1 L bolus of IV fluids very slowly but did not administer sepsis bolus because he is in decompensated heart failure. I am choosing not to treat his A-fib at this time given I worry medications could cause his decompensation. I had an interactive discussion with Dr. Myrick in the transfer center who advised that he would except the patient to [facility] ED for further evaluation and management. Patient was transported in stable condition by EMS. Critical Care Critical Care Time Critical Care Time: Yes Attestation: On 01/04/24, the high probability of a clinically significant, sudden or life threatening deterioration of the following system(s) required my full and direct attention, intervention and personal management. The time I documented below is in addition to time spent performing reported procedures but includes the following listed in this critical care notation. Total Time Total Critical Care Time: 50
[2024-01-04 11:24] LABS: Basophils # 0.1 K/mm3 (0-0.2); Basophils % 0.8 % (0.1-2.0); Eosinophils % 0.1 % (0.1-12.0); Hematocrit 43.7 % (42.0-52.0); Lymphocytes # 1.3 K/mm3 (0.7-4.5); Lymphocytes % 8.5 % (10-50); Mean Corpuscular HGB Conc 32.1 g/dL (31.8-35.4); Mean Corpuscular Volume 102.9 fl (80-94); Monocytes # 1.6 K/mm3 (0.1-1.0); Monocytes % 10.3 % (1.7-9.3); Neutrophils # 12.2 K/mm3 (1.8-7.8); Neutrophils % 80.4 % (37.0-80.0); Platelet Count 199 K/mm3 (142-424); Red Blood Count 4.25 M/mm3 (4.60-6.20); Red Cell Distribution Width 16.4 % (11.5-17.5); White Blood Count 15.2 K/mm3 (4.8-10.8)
[2024-01-04 11:24] LABS: VBG Base Excess -16.4 mmol/L (-2.4-2.3); VBG HCO3 10.8 mmol/L (23-30); VBG Oxygen Saturation 82.6 % (50-70); VBG PH 7.25 mmol/L (7.31-7.41); VBG PO2 53.6 mmol/L (28-40); VBG Total CO2 11.6 mmol/L (23-27)
[2024-01-04 11:26] LABS: Lactate Venous 8.3 mmol/L (0.4-2.0)
--- NOTE | 2024-01-04 11:27 | PC.NURSE ---
1125 CRITICAL VBG RESULTS RECEIVED FROM [place] IN RESPIRATORY. PT'S NAME AND R/V. REPORTED TO DR GARCIA.
[2024-01-04 11:29] LABS: Albumin Level 4.2 g/dl (3.5-5.0); Chloride 99 mmol/L (98-107); Potassium 5.1 mmoL/L (3.5-5.1); Sodium 132 mmol/L (136-145)
[2024-01-04] MEDS: LACTATED RINGERS 1000ML 1,000 ML 999 ML IV (11:30)
[2024-01-04] MEDS: MECLIZINE 25MG TABLET 25 MG PO (11:30)
[2024-01-04 11:32] LABS: Albumin/Globulin Ratio 1.4 (1.1-1.8); Alkaline Phosphatase 89 U/L (38-126); Anion Gap 25.1 mEq/L (5-15); Bilirubin,Total 1.8 mg/dl (0.2-1.3); Calcium 8.4 mg/dl (8.4-10.2); Carbon Dioxide 13 mmol/L (22.0-30.0); Creatinine Clearance Estimated 36 mL/min (50-200); Estimated Glomerular Filt Rate 26 ml/min (>60); GFR (African American) 32 ML/MIN (>60); Globulin 2.9 g/dL (1.3-3.2); Glucose 168 mg/dl (74-100); Lipase 228 U/L (23-300); Magnesium 2.4 mg/dl (1.6-2.3); Phosphorous 8.3 mg/dl (2.5-4.5); Total Protein,Serum 7.1 g/dl (6.3-8.2)
--- NOTE | 2024-01-04 11:42 | PC.NURSE ---
CRITICAL BUN 82, PT NAME AND R/V. DR GARCIA NOTIFIED
[2024-01-04 11:43] LABS: Blood Urea Nitrogen 82 mg/dl (9-20)
--- NOTE | 2024-01-04 11:43 | CT_ITS ---
FINAL REPORT TECHNIQUE: Axial CT images were performed from the lung apices through the upper abdomen. Coronal and sagittal reformats were submitted. This study was performed with techniques to keep radiation doses as low as reasonably achievable (ALARA). Individualized dose reduction techniques using automated exposure control or adjustment of mA and/or kV according to the patient's size were employed. CLINICAL HISTORY: falls, intractable n/v, JACKIE COMPARISON: None FINDINGS: The patient has undergone a prior median sternotomy. Cardiomegaly is present. There is no axillary adenopathy. There is no hilar mass or adenopathy. There is a small to moderate right pleural effusion, as well as a small left pleural effusion and bilateral dependent atelectasis. Several calcified granulomas are present. There is focal enlargement of the mid thoracic esophagus, that may represent an esophageal wall mass. Correlation with endoscopy is suggested for further evaluation. IMPRESSION: Cardiomegaly, with bilateral pleural effusions and bilateral dependent atelectasis. Focal enlargement of the mid thoracic esophagus that may represent an esophageal wall mass. Correlation with endoscopy is suggested for further evaluation. Reviewed, Interpreted and Dictated by Jake Hebert III, MD Transcribed by Margarita Whittington Authenticated and [facility]
--- NOTE | 2024-01-04 11:43 | CT_ITS ---
FINAL REPORT CLINICAL HISTORY: falls, intractable n/v, JACKIE COMPARISON: 04/14/2022 FINDINGS: Axial CT images of the abdomen and pelvis were obtained without intravenous contrast. Coronal and sagittal reformatted images were also obtained.This study was performed with techniques to keep radiation doses as low as reasonably achievable (ALARA). Individualized dose reduction techniques using automated exposure control or adjustment of mA and/or kV according to the patient's size were employed. Abdomen:The lung bases are clear. There are probable bilateral renal cysts. There is also a partially calcified cystic mass in the left kidney, favor a complex cyst. Renal mass protocol CT could be helpful. Diffuse vascular calcifications are present. The liver, spleen and pancreas have an unremarkable, unenhanced appearance. Gallstones are present in the gallbladder. Mild anasarca is present. No mass or adenopathy is seen. No inflammatory process is identified. Pelvis: Images of the pelvis reveal no evidence of ureteral dilation or ureteral stone. Postoperative changes are present in the rectosigmoid colon. There is a small amount of ascites present in the abdomen and pelvis. There are multiple chronic pelvic fractures noted. There is diffuse bladder wall thickening, likely inflammatory. IMPRESSION: Multiple bilateral renal cysts, with a partially calcified cystic mass in the left kidney that likely represents a complex cyst. However correlation with renal mass protocol CT is suggested for further evaluation. Diffuse bladder wall thickening, likely inflammatory. Gallstones Mild anasarca and a small amount of ascites in the abdomen and pelvis. Reviewed, Interpreted and Dictated by Jake Hebert III, MD Transcribed by Margarita Whittington Authenticated and [facility]
--- NOTE | 2024-01-04 11:51 | PC.NURSE ---
TROP 6.95 RECEIVED FROM LAB, PT NAME AND R/V. DR GARCIA NOTIFIED
[2024-01-04 11:52] LABS: Troponin I 6.95 ng/ml (0.00-0.034)
[2024-01-04 11:54] LABS: MANUAL DIFFERENTIAL MANUAL DIFFERENTIAL (MANUAL DIFF)
[2024-01-04 12:04] LABS: Thyroid Stimulating Hormone 0.37 uIU/mL (0.465-4.68)
[2024-01-04 12:07] LABS: NT Pro Brain Natriuretic Pep. 17300 pg/mL (0-450)
--- NOTE | 2024-01-04 12:13 | PC.NURSE ---
Called cardiology per Dr Wilcox to speak with someone about this pt. Cardiology was out and had to be paged.
--- NOTE | 2024-01-04 12:13 | PC.NURSE ---
DR GARCIA SPEAKING WITH CARDIOLOGY
[2024-01-04 12:14] LABS: Lymphocytes % 13 % (10-50); Macrocytosis 1+; Monocytes % 8 % (2-9); Neutrophils % 79 % (42-76); Nucleated Red Blood Cells 2; Platelet Estimate Normal; Total Cells Counted 100
--- NOTE | 2024-01-04 12:15 | PC.NURSE ---
Sorin from Cardiology came to the ER and is speaking with Dr Wilcox at this time
--- NOTE | 2024-01-04 12:22 | ECG_ITS ---
APPROVED REPORT Exam: Resting ECG HR:132 bpm ECG Measurements Heart Rate 132 AXES QRSd 164 QRS 225 QT 351 T 91 QTc 429 Conclusion ATRIAL FIBRILLATION WITH RAPID VENTRICULAR RESPONSE WITH ABERRANT CONDUCTION OR VENTRICULAR PREMATURE COMPLEXES INTRAVENTRICULAR CONDUCTION DELAY [130+ ms QRS DURATION] ABNORMAL ECG Electronically signed by : YAN GARCIA, 01/04/2024 15:28:07
[2024-01-04 12:25] LABS: Alanine Aminotransferase 3322 U/L (12-78); Aspartate Amino Transferase 6387 U/L (17-59)
--- NOTE | 2024-01-04 12:28 | CA_ITS ---
APPROVED REPORT EXAM: Comprehensive 2D, Doppler, and color-flow Echocardiogram Purchasing And Claims Supervisor: Susana Meng RT(R) Ht: 6 ft 0 in Wt: 224lbs BSA: 2.24 BP: 122/93 mmHg Indications: chf, new onset AFIB, colon ca, pad, weakness, hypotension, htn, dm, hyperlipidemia Echo Enhancing Agent Indication: Rule out thrombus Agent(s) / Amount(s) Used: Definity 2 cc 2D Dimensions Left Atrium 5.56 cm M: 3.0 - 4.0 LA Volume 86.60 mL LVOT 2.02 cm (M/F) 1.5-2.5 LA Volume Index 38.66 mL/m2 (M/F) 16-34 EF AP4 7.30 % GL Strain 2.1 % M-Mode Dimensions RVDd 2.99 cm (0.9-2.6) LVDd 8.34 cm (3.5-5.7) Ao Diam 3.09 cm (2.0-3.7) LVDs 7.94 cm (3.5-5.7) IVSd 1.03 cm (0.6-1.1) PWd 0.76 cm (0.6-1.1) EF (Teich) 10.40% FS 4.80% EDV (Teich) 378.10 mL ESV (Teich) 338.90 mL Aortic Valve LVOT Max 64.0 (70-110 cm/s) JUSTEN Index 0.61 cm2/m2 LVOT VTI 8.11 cm AoV Peak Karthik. 138.0 (50-130 cm/s) AO Mean GR. 3.70 (<5 mmHg) AO VTI 18.9 (18-25 cm) JUSTEN (VTI) 1.37 (2.5-4.5 cm2) Tricuspid Valve TR P. Velocity 351.00 cm/s RAP Estimate 15.00 mmHg RVSP 64.20 mmHg Left Ventricle Left ventricle is severely dilated. Left ventricular systolic function is severely decreased. There is increased LV wall thickness. There is severe global hypokinesis. The septum is asynchronous. Diastolic function is indeterminate. No left ventricle thrombus noted on this study. LVEF is 10%. Right Ventricle Right ventricle is mildly dilated. Right ventricle is moderately hypokinetic. Atria Left atrium is moderately dilated. Right atrium is moderately dilated. Color Doppler demonstrates possible evidence of interatrial shunt. Aortic Valve The aortic valve is mildly thickened. Mild aortic stenosis. JUSTEN by continuity equation is 1.8 cm2. Mild aortic regurgitation. Mitral Valve The mitral valve leaflets are mildly thickened. No evidence of mitral valve stenosis. Severe mitral regurgitation. The MR jet is eccentric and posteriorly directed. mechanism of MR likely functional in the setting of tethering of posterior MV leaflet (Cipriano class IIIB). Tricuspid Valve The tricuspid valve leaflets are thin and pliable. Severe tricuspid regurgitation. RVSP > 60 mmHg. Pulmonic Valve The pulmonary valve is normal in structure. Moderate pulmonic regurgitation. Great Vessels The aortic root is normal in size. The ascending aorta is normal in size. The IVC is not well visualized. Pericardium Trivial, posterior pericardial effusion. No echo indications of tamponade. Other Information Study Quality: Fair Conclusion Severely dilated LV with severe reduction in LV systolic function (LVEF 10%). Mild RV dilation with moderate reduction in RV function. Biatrial dilation. Severe MR [MR jet is eccentric and posteriorly directed. mechanism of MR likely functional in the setting of tethering of posterior MV leaflet (Cipriano class IIIB)] Severe TR. Moderate NH. Mild AI. Mild (JUSTEN by continuity equation is 1.8 cm2). Trivial, posterior pericardial effusion. No echo indications of tamponade. Color Doppler demonstrates possible evidence of interatrial shunt. Ultrasound enhancing agent demonstates no evidence of LV thrombus. Electronically signed by : Jacqueline Yañez MD 01/04/2024 19:34:34
[2024-01-04 12:30] LABS: Activated Partial Thrombo Time 26.1 seconds (22.8-30.6); Prothrombin Time 17.1 seconds (10.1-12.5)
[2024-01-04 12:38] LABS: Procalcitonin 0.313 ng/mL (0.0-2.0)
--- NOTE | 2024-01-04 12:40 | PC.NURSE ---
CARDIOLOGY AT BEDSIDE
--- NOTE | 2024-01-04 12:48 | PC.NURSE ---
ECHO AT BEDSIDE
--- NOTE | 2024-01-04 13:05 | EXP.CARD.CON ---
History of Present Illness History of Present Illness Consult date: 01/04/24 Requesting physician: Jessica Wilcox Chief complaint: N/V/D weakness History of present illness: 78-year-old white male with history of permanent A-fib, CAD status post CABG approximately 10 years ago and ischemic cardiomyopathy with unknown EF. He used to follow with Dr. Mitchell in [place] and was told approximately 2 years ago he needed an ICD but he declined at that time and has not followed up with anybody in cardiology in several years. He takes ASA and and over the counter cholesterol medicine. His baseline functional capacity is poor, he is not able to walk 1 flight of stairs. In the past 1 month has had a decline in status and has been sleeping in his recliner each night with occasional lower extremity edema and worsening dyspnea on exertion. 3 to 4 days ago he developed intractable nausea and vomiting which is what brings him to the emergency room today. On evaluation he is pale and weak but alert and oriented. His workup reveals WBC 15, INR 1.6, proBNP 17,000, AST 6000, ALT 3000, creatinine 2.4, troponin 6.9. His EKG shows rapid A-fib 130s. Blood pressure is 110-130. [facility] Disclaimer: The information contained in this section may have been updated after the patient was seen, as this information can be updated by other users. Medical History History of colon cancer Vertigo Seizure disorder Diabetes mellitus, type 2 Hypertension Hyperlipidemia Colon cancer Internal carotid artery stent present [facility]ena Surgical History History of esophagogastroduodenoscopy (EGD) History of appendectomy History of colon resection H/O heart artery stent History of colonoscopy Family History Other Family history of arthritis Family history of myocardial infarction Social History Smoking Status: Never smoker second hand exposure: No alcohol intake: never substance use type: denies use current occupational status: retired Travel in the last 8 weeks: None household members: spouse and family housing: house caffeine: No Review of Systems Constitutional Constitutional: Denies chills, Reports fatigue, Denies fever(s), Reports poor appetite, Reports lethargy, Reports malaise and Reports weakness Eyes Eyes: Denies loss of vision ENT Ears, Nose, Mouth, and Throat: Denies hearing loss and Denies vertigo *Cardiovascular Cardiovascular: Denies chest pain, Denies chest pain with activity, Reports dyspnea, Reports dyspnea on exertion, Reports leg edema, Reports orthopnea, Reports rapid heart rate and Denies syncope *Respiratory Respiratory: Reports cough, Reports dyspnea and Reports dyspnea on exertion *Gastrointestinal Gastrointestinal: Denies abdominal pain, Denies change in stool character, Reports nausea and Reports vomiting *Genitourinary Genitourinary: Denies difficulty urinating *Musculoskeletal Musculoskeletal: Denies muscle weakness Integumentary/Breasts Skin/Breast: Denies changing lesions *Neurologic Neurologic: Denies loss of vision, Denies syncope, Denies vertigo and Reports weakness Endocrine Endocrine: Reports fatigue Exam Data for Last 24 hours Vital signs and Labs for Last 24 Hours: Temp Pulse Resp BP Pulse Ox O2 Del Method 97.7 F 118 H 24 126/83 97 Room Air 01/04/24 11:12 01/04/24 11:59 01/04/24 11:59 01/04/24 11:59 01/04/24 11:59 01/04/24 11:59 Laboratory Results - last 24 hr 01/04/24 11:02: WBC 15.2 H, RBC 4.25 L, Hgb 14.0 L, Hct 43.7, MCV 102.9 H, MCH 33.0 H, MCHC 32.1, RDW 16.4, Plt Count 199, MPV 9.0, Neut % (Auto) 80.4 H, Lymph % (Auto) 8.5 L, Stanley % (Auto) 10.3 H, Eos % (Auto) 0.1, Baso % (Auto) 0.8, Neut # (Auto) 12.2 H, Lymph # (Auto) 1.3, Stanley # (Auto) 1.6 H, Eos # (Auto) 0.0, Baso # (Auto) 0.1, Total Counted 100, Neutrophils % (Manual) 79 H, Lymphocytes % (Manual) 13, Monocytes % (Manual) 8, Nucleated RBCs 2, Platelet Estimate Normal, Macrocytosis 1+, PT 17.1 H, INR 1.60 H, APTT 26.1, Sodium 132 L, Potassium 5.1, Chloride 99, Carbon Dioxide 13 L, Anion Gap 25.1 H, BUN 82 H, Creatinine 2.40 H, Estimated Creat Clear 36, Estimated GFR 26 L, Est GFR ( Amer) 32 L, Glucose 168 H, Calcium 8.4, Phosphorus 8.3 H, Magnesium 2.4 H, Total Bilirubin 1.8 H, AST 6387 H*, ALT 3322 H*, Alkaline Phosphatase 89, Troponin I 6.95 H, NT-Pro-B Natriuret Pep 23872 H, Total Protein 7.1, Albumin 4.2, Globulin 2.9, Albumin/Globulin Ratio 1.4, Lipase 228, Procalcitonin 0.313, TSH 0.37 L, Thyroxine (T4) 5.0 L 01/04/24 11:18: VBG pH 7.25 L, VBG pCO2 25.0 L, VBG pO2 53.6 H, VBG HCO3 10.8 L, VBG Total CO2 11.6 L, VBG O2 Saturation 82.6 H, VBG Base Excess -16.4 L, VBG Lactic Acid 8.3 H I & O for Last 24 hours: Intake & Output 01/01/24 01/02/24 01/03/24 01/04/24 23:59 23:59 23:59 23:59 Weight 224 lb Constitutional Constitutional: no acute distress and cooperative *Routine HEENT Exam Eye: Present PERRL *Routine Respiratory Exam Respiratory: Present CTA bilaterally; Absent accessory muscle use, wheezes or crackles *Routine Cardiovascular Exam Cardiovascular: Present RRR, Normal S1, Normal S2, tachycardia and irregularly irregular; Absent murmur, gallop or rubs *Routine Abdominal Exam Abdominal: Present soft; Absent tenderness, distended, rebound, guarding, firm or mass *Routine Extremities Exam Extremities: Present pulses intact; Absent cyanosis or edema *Routine Skin Exam Skin: Present intact, pallor and warm; Absent erythema or wounds *Routine Neurological Exam Neurological: Present alert and oriented X3 Routine Psychiatric Exam Psychiatric: Present cooperative Meds Home Medications and Allergies Home Medications ?Medication ?Instructions ?Recorded ?Confirmed ?Type aspirin 81 mg tablet,delayed 81 mg PO DAILY Heart disease 03/07/18 12/29/23 History release (Adult Low Dose Aspirin) krill oil 500 mg capsule 1 tab PO DAILY Cholesterol 10/08/18 07/31/24 History metoprolol succinate 25 mg 25 mg PO DAILY High Blood Pressure 03/07/18 12/29/23 History tablet,extended release 24 hr niacin 500 mg capsule,extended 1,000 mg PO HS Supplement 03/07/18 12/29/23 History release ascorbic acid (vitamin C) 500 mg 500 mg PO DAILY Supplement 12/06/20 12/29/23 History capsule cinnamon bark 500 mg capsule 1,000 mg PO DAILY Supplement 12/06/20 12/29/23 History (Cinnamon) furosemide 40 mg tablet 40 mg PO BIDL Fluid 12/06/20 12/29/23 History multivit with min-folic 1 tab PO DAILY Supplement 12/06/20 12/29/23 History acid-lutein 400 mcg-250 mcg chewable tablet (Centrum Silver) potassium chloride 20 mEq 40 meq PO DAILY Supplement 12/06/20 12/29/23 History tablet,extended release(part/cryst) cholecalciferol (vitamin D3) 25 25 mcg PO DAILY Supplement 07/10/23 12/29/23 History mcg (1,000 unit) tablet gabapentin 800 mg tablet 800 mg PO TID NERVE PAIN 07/10/23 12/29/23 History insulin glargine 100 15 unit SQ DAILY Diabetes 07/10/23 12/29/23 History unit-lixisenatide 33 mcg/mL subcutaneous pen (Soliqua 100/33) naproxen sodium 220 mg tablet 220 mg PO Q12HP PRN Mild Pain 07/10/23 12/29/23 History (Scale Score 1-4) pravastatin 40 mg tablet 40 mg PO HS Cholesterol 07/10/23 12/29/23 History clopidogrel 75 mg tablet 75 mg PO DAILY Blood Thinner 30 07/11/23 12/29/23 Rx days #30 tabs scopolamine base 1 mg over 3 days See Rx Instructions .Route 10/26/23 12/29/23 Rx transdermal patch .COMPLEX #10 patches mupirocin 2 % topical ointment 1 applic topical BID infection 14 12/15/23 12/29/23 Rx days #15 grams collagenase clostridium histo. 250 1 applic topical DAILY PRN wound 12/29/23 12/29/23 Rx unit/gram topical ointment (Santyl) care #30 grams New Prescriptions to Start Prescriptions: Allergies Allergy/AdvReac Type Severity Reaction Status Date / Time No Known Allergies Allergy Verified 12/29/23 09:02 Assessment and Plan *Assessment and plan (1) Cardiogenic shock: Status: Acute Category: Medical Code(s): R57.0 - Cardiogenic shock (2) CAD (coronary artery disease): Status: Acute Category: Medical Code(s): I25.10 - Atherosclerotic heart disease of [place] coronary artery without angina pectoris (3) Ischemic cardiomyopathy: Status: Acute Category: Medical Code(s): I25.5 - Ischemic cardiomyopathy (4) Acute renal failure: Status: Acute Category: Medical Code(s): N17.9 - Acute kidney failure, unspecified (5) Acute liver failure: Status: Acute Category: Medical Code(s): K72.00 - Acute and subacute hepatic failure without coma (6) Nausea and vomiting: Status: Acute Category: Medical Code(s): R11.2 - Nausea with vomiting, unspecified Plan Cardiogenic shock with multiorgan failure - bedside ECHO shows EF approx 5-10% and pt has Cr 2.4 and AST 6k with rapid A-fib - recommend STAT RHC to guide treatment approach and likely addition of pressors and/or IABP for stabilization - further plans pending results HFrEF - Acute on Chronic Left Systolic Heart Failure - known dx, recommended to have ICD 2 years ago which patient declined - No cardiology follow-up in years, he is not on any GDMT - Presented here with multiorgan failure, proBNP 17,000, CT chest pending - Recommend stat right heart cath as discussed above CAD status post CABG approx 10 years ago - CCS = 4 anginal equivalent SOA but pt denies chest pain - on DAPT, BB, Statin at home. No testing in years - Trop here is 6.9 in setting of MOF. - EKG - A-fib RVR 130s - pt will need LHC this admission, will stabilize organ failure first Permanent atrial fibrillation - Known diagnosis, on metoprolol at home but has never been on OAC - HR here is 110?130, reasonably well-controlled in the setting of multiorgan failure - Avoid beta-blockers and calcium channel blockers due to heart failure here -Patient is partially auto anticoagulated with INR 1.6 Acute renal failure - 2.4 here (up from 1.1 on 12/14/23) - secondary to hypoperfusion - dehydrated from N/V but also cardiogenic shock - RHC pending to help guide fluid management Acute Hepatitis - AST 6,387, ALT 3.322, INR 1.6 - no prior hx of GI issues, abdomen is soft and non-tender, denies abdominal pain - likely hepatic congestion from CHF DM-II - well controlled with A1C 6.2 01/03: Pt is critically ill with multi-organ failure. Will take to [facility] urgently for RHC with further plans pending results.
--- NOTE | 2024-01-04 13:06 | PC.NURSE ---
cardiology and hospitalist consulting admission at this time
--- NOTE | 2024-01-04 13:08 | PC.NURSE ---
[facility] Wilcox to check and see if they had GI and Nephrology in which that they do have those services. Talked to them about this pt but they had no beds at the time and would not be able to receive the pt at this time.
[2024-01-04] MEDS: DEFINITY US ECHO CONTRAST 2ML INJ 2 MG IV (13:42)
--- NOTE | 2024-01-04 13:51 | HMH.PHAINT1 ---
Pharmacy Intervention Comments: MEDICATION RECONCILIATION COMPLETED ON PATIENT USING EXTERNAL FILL HISTORY FROM PHARMACY. -VADIM ALLEN, TOSHAD
[2024-01-04] MEDS: CEFEPIME HCL 2 GM in 0.9 % SODIUM CHLORIDE 100 ML IV (14:37)
[2024-01-04] MEDS: VANCOMYCIN CONSULT REQUEST 1 EACH NOTAPPLIC (14:42)
[2024-01-04] MEDS: VANCOMYCIN/WATER FOR INJ (PEG) 1.75 GM/350 ML PIGGYBACK IV (14:59)
[2024-01-04 15:26] LABS: Reflex Lactic Add Lactic Reflex
--- NOTE | 2024-01-05 01:11 | PC.NURSE ---
Dr Lisseth Martin called requesting medical record. States they did not receive transfer packet. Faxed at [phone]
== END 2024-01-04 15:02 | disposition short-term general hospital (02) ==
PROVIDERS: Emergency Provider Emergency Medicine; PCP Internal Medicine Adolescent Medicine
DX: R57.0 Cardiogenic shock (principal); K72.00 Acute and subacute hepatic failure without coma; I48.91 Unspecified atrial fibrillation; I45.9 Conduction disorder, unspecified; R11.2 Nausea with vomiting, unspecified; E83.39 Other disorders of phosphorus metabolism; N17.9 Acute kidney failure, unspecified; R79.89 Other specified abnormal findings of blood chemistry; I25.5 Ischemic cardiomyopathy; I11.0 Hypertensive heart disease with heart failure; I50.9 Heart failure, unspecified; I25.10 Atherosclerotic heart disease of native coronary artery without angina pectoris; E11.9 Type 2 diabetes mellitus without complications; I73.89 Other specified peripheral vascular diseases; R42 Dizziness and giddiness; W19.XXXA Unspecified fall, initial encounter; E78.5 Hyperlipidemia, unspecified; Z79.4 Long term (current) use of insulin; Z95.5 Presence of coronary angioplasty implant and graft; R74.02 Elevation of levels of lactic acid dehydrogenase [LDH]; E87.29 Other acidosis; Z85.038 Personal history of other malignant neoplasm of large intestine
CPT/HCPCS: 70450; 71250; 72125; 72128; 72131; 74176; 80050; 80053; 82803; 83690; 83735; 83880; 84100; 84145; 84436; 84443; 84484; 85007; 85025; 85610; 85730; 87040; 93005; 93306; 96361; 96365; 96375; 99291; J7120; Q9957